=== PATIENT | male | born 1960 | race Caucasian/White ===

== ENCOUNTER → 2017-03-31 06:24 | Outpatient (CLI) | payer BC, SELFPAY ==
[2017-03-31 07:35] LABS: Absolute Lymphocyte Count 1.36 X10^3/ul (0.83-4.51); Absolute Neutrophil Count 6.6 X10^3/uL (2.0-7.7); Basophil# 0.04 X10^3/uL; Basophil% 0.4 % (0-1); Eosinophil# 0.22 X10^3/uL; Eosinophils% 2.4 % (0-5); Hematocrit 41.9 % (40-54); Hemoglobin 14.1 g/dl (13.0-16.5); Lymphocyte # 1.36 X10^3/ul (4.0); Lymphocyte % 15.1 % (19-41); Mean Corp Hgb Conc 33.7 g/gl (32-36); Mean Corpuscular Hgb 29.6 pg (27.0-32.0); Mean Corpuscular Volume 87.8 fL (80-94); Mean Platelet Vol. 11.1 fl (6.2-12.0); Monocyte# 0.77 X10^3/uL; Monocyte% 8.5 % (0-10); Neutrophil # 6.59 X10^3/uL (2.7-7.7); Neutrophil % 73.3 % (47-70); Platelet Count 197 K/mm3 (150-450); RBC Distribution Width CV 13.2 % (11.6-14.6); RBC Distribution Width SD 40.9 fl (35.1-43.9); Red Blood Count 4.77 M/mm3 (4.6-6.2)
[2017-03-31 07:37] LABS: POSITIVE COUNT NO; POSITIVE DIFFERENTIAL NO; POSITIVE MORPHOLOGY NO
[2017-03-31 07:48] LABS: Microalbumin,Random Urine 5.9 mg/L (NO RANGE EST.); Microalbumin:Creatinine Ratio 3.4 mg/g CRE (<30 mg/g CRE)
[2017-03-31 07:59] LABS: AST(SGOT) 15 U/L (15-37); Alanine Aminotransfer ALT/SGPT 48 U/L (16-61); Albumin, Serum 3.7 g/dL (3.2-5.0); Alkaline Phosphatase 89 U/L (45-117); Anion Gap 9 (5-15); BUN 22 mg/dL (7-18); BUN/Creat Ratio 19.8 RATIO (10-20); Calcium,Total 9.1 mg/dL (8.5-10.1); Chloride 105 mmol/L (98-107); Cholesterol 185 mg/dL (200); Creatinine, Serum 1.11 mg/dL (0.70-1.30); EST Glomerular Filtration Rate 72 mL/min (>60); Est Glom Filt Rate - Afr Amer 88 mL/min (>60); Globulin 3.6 g/dL (2.2-4.2); Glucose 127 mg/dL (74-106); High Density Lipoprotein 36 mg/dL; Potassium 4.2 mmol/L (3.5-5.1); Protein, Total 7.3 g/dL (6.4-8.2); Sodium Level 141 mmol/L (136-145); Thyroid Stim Hormone (TSH) 0.81 uIU/mL (0.358-3.74); Triglycerides 209 mg/dL; Very Low Density Lipoprotein 42 mg/dL (5-40)
[2017-03-31 08:25] LABS: Hemoglobin A1c 5.8 % (4.2-6.3)
== END ==
PROVIDERS: Family Provider Family Medicine; PCP Family Medicine; Visit Provider Family Medicine
DX: I10 Essential (primary) hypertension (principal); E78.5 Hyperlipidemia, unspecified; E01.0 Iodine-deficiency related diffuse (endemic) goiter; R73.01 Impaired fasting glucose
CPT/HCPCS: 36415; 80053; 80061; 82043; 82570; 83036; 84443; 85025

== ENCOUNTER → 2017-05-16 09:23 | Outpatient (CLI) | payer BC, SELFPAY ==
--- NOTE | 2017-05-16 09:27 | RAD_ITS ---
STUDY: X-RAY CHEST REASON FOR EXAM: Male, 56 years old. Chronic cough TECHNIQUE: Frontal and lateral views of the chest. COMPARISON: None. FINDINGS: The lungs are clear and expanded. There is no demonstrated pleural abnormality. Normal size heart. Normal mediastinum and colin. Normal visualized pulmonary arteries. Normal visualized aortic arch and descending thoracic aorta. Normal visualized thoracic spine. Normal visualized ribs, clavicles, and shoulders. There is no demonstrated abnormality of the visualized soft tissue structures of the upper abdomen. RAD/Chest PA and Lateral IMPRESSION: Normal x-ray examination of the chest. Electronically Signed: Dl Landrum MD at 16:48 EDT , Service support ,
== END ==
PROVIDERS: Family Provider Family Medicine; PCP Family Medicine; Visit Provider Family Medicine
DX: R06.09 Other forms of dyspnea (principal); R05 Cough
CPT/HCPCS: 71046

== ENCOUNTER → 2018-05-27 06:46 | Outpatient (CLI) | payer BC, SELFPAY ==
[2018-05-19 11:48] VITALS: BMI 35.4
--- NOTE | 2018-05-27 12:48 | PFT ---
INTRODUCTION: The patient is a 57-year-old male that presents for pulmonary function studies secondary to a diagnosis of chronic cough. Respiratory therapy reports good patient effort. Bronchodilators were used during testing. INTERPRETATION: Forced expiration spirometry demonstrates the presence of a moderately severe large airways obstructive ventilatory defect. There was a significant response to aerosolized bronchodilators noted. Spirograms are of good quality and do not plateau indicating slow emptying of the lungs. Body plethysmography was performed and reveals an elevated RV to 156% of predicted, indicative of underlying air trapping. Diffusing capacity by single breath CO is within normal limits. IMPRESSION: Partially reversible moderately severe large airways obstructive ventilatory defect with associated air trapping and preserved diffusing capacity.
== END ==
PROVIDERS: Family Provider Family Medicine; PCP Family Medicine; Referring Provider Internal Medicine Cardiovascular Disease; Visit Provider Internal Medicine Cardiovascular Disease
DX: R06.09 Other forms of dyspnea (principal)
CPT/HCPCS: 94060; 94726; 94729

== ENCOUNTER → 2018-06-10 12:42 | Outpatient (CLI) | payer BC, SELFPAY ==
[2018-05-19 11:48] VITALS: BMI 35.4
--- NOTE | 2018-06-10 12:44 | ECHOCS_ITS ---
Reason For Study: DYSPNEA/SOB Procedure This was a 2D Doppler, Color Flow transthoracic echocardiogram. Exam performed in department. Left Ventricle Normal size and thickness. The estimated ejection fraction is 65 %. Normal diastology for age. No regional wall motion abnormalities noted. Right Ventricle Moderately dilated right ventricle. Normal systolic function. Atria The left atrium is mildly enlarged. Normal right atrium. Normal atrial septum. Mitral Valve The mitral valve is structurally normal. No prolapse or stenosis seen. Trivial mitral valve insufficiency. Tricuspid Valve Normal tricuspid valve. Trivial tricuspid valve insufficiency. Right ventricular systolic pressure estimated to be 34 mmHg. Aortic Valve Normal aortic valve. Trisinus/trileaflet aortic valve. Pulmonic Valve Normal pulmonic valve. Great Vessels Normal aortic root. Normal arch. Normal inferior vena cava. Inferior vena cava collapse with sniff. Pericardium/Pleural No pericardial effusion. Medication 22 gauge I.V. with prn adaptor inserted into right arm. Diluted definity 6ml given slow IV push to enhance endocardial definition. MMode/2D Measurements & Calculations LVIDd: 5.3 cm IVSd: 1.0 cm Ao root diam: 3.2 cm LVIDs: 3.7 cm LVPWd: 1.0 cm RVDd: 4.4 cm FS: 29.8 % LAV(MOD-bp): 77.0 ml LVAd ap4: 37.4 cm2 SV(MOD-sp4): 79.2 ml LAV(MOD-bp) Indexed: 34.8 ml/m2 EDV(MOD-sp4): 133.4 ml LAV(MOD-sp2): 80.6 ml EDV(sp4-el): 139.4 ml LAV(MOD-sp4): 72.9 ml LVAs ap4: 21.8 cm2 ESV(MOD-sp4): 54.1 ml ESV(sp4-el): 56.9 ml EF(MOD-sp4): 59.4 % EF(sp4-el): 59.2 % SV(sp4-el): 82.5 ml LA A4 area: 22.9 cm2 LA dimension(2D): 4.2 cm RA A4 area: 15.6 cm2 Time Measurements MV dec time: 0.22 sec Doppler Measurements & Calculations MV E max terrance: 91.5 cm/sec Lat Peak E' Terrance: 12.6 cm/sec Med Peak E' Terrance: 8.1 cm/sec MV A max terrance: 84.2 cm/sec E/E' lat: 7.3 E/E' med: 11.3 MV E/A: 1.1 Ao V2 max: 207.3 cm/sec LV V1 max: 156.8 cm/sec PA V2 max: 123.0 cm/sec Ao max P.2 mmHg LV V1 max P.8 mmHg TR max terrance: 268.1 cm/sec TR max P.8 mmHg Interpretation Summary The estimated ejection fraction is 65 %. Normal diastology for age. Moderately dilated right ventricle. The left atrium is mildly enlarged. Trivial mitral valve insufficiency. Trivial tricuspid valve insufficiency. Right ventricular systolic pressure estimated to be 34 mmHg. There is no comparison study available. The study was technically difficult. Contrast injection was performed. Ordering Physician: Himanshu Hsu Referring Physician: ELENA LEON Performed By: Kay Brower RDCS
== END ==
PROVIDERS: Family Provider Family Medicine; PCP Family Medicine; Referring Provider Internal Medicine Cardiovascular Disease; Visit Provider Internal Medicine Cardiovascular Disease
DX: R06.09 Other forms of dyspnea (principal); I45.10 Unspecified right bundle-branch block; I10 Essential (primary) hypertension
CPT/HCPCS: 93306; Q9957; A4216; C8929

== ENCOUNTER → 2018-06-29 09:27 | Outpatient (CLI) | payer BC, SELFPAY ==
[2018-05-19 11:48] VITALS: BMI 35.4
--- NOTE | 2018-06-29 09:30 | STEWCON_ITS ---
Reason For Study: Dyspnea On Exertion Stress Results Protocol: Micheal Protocol Maximum Predicted HR: 162 bpm Target HR: 138 bpm % Maximum Predicted HR: 80 % DurationHeart Rate Stage (mm:ss) (bpm) BP Comment Baseline 58 116/80No Chest Pain; 4 ML Diluted Definity Given Micheal Protocol Stage I 3:00 87 136/72No Chest Pain Micheal Protocol Stage II 3:00 102 140/68No Chest Pain Micheal Protocol Stage III 3:00 129 180/70No Chest Pain; Mild Dyspnea Recovery 67 128/70No Chest Pain Stress Duration: 9:00 mm:ss Maximum Stress HR: 129 bpm METS: 10 Baseline Echocardiogram Findings The estimated ejection fraction is 65 %. Stress Echo Wall motion Data Resting WM Intermediate WM Stress WM Resting Wall Motion Wall Motion Stress No regional wall motion Infero-Basal: Mildly hypokinetic. abnormalities noted. Mid-Lateral : Mildly hypokinetic. EKG Data Normal intervals are noted. The patient exercised according to the regular Micheal protocol for a total duration of 9:00. The maximum heart rate attained was 131 beats per minute. This was 80% of maximum predicted heart rate. The patient exercised into stage 3 of the Micheal protocol. No clinical angina was noted. No arrhythmias noted. Interpretation Summary The estimated ejection fraction is 65 %. Infero-Basal: Mildly hypokinetic Mid-Lateral : Mildly hypokinetic Abnormal, submaximal treadmill echocardiogram. Abnormal for ischemia by EKG and echocardiographic criteria. No anginal symptoms noted. Rare PVC noted. Patient developed [address] segment depression along the inferior lateral leads at peak exercise which persisted for 5 minutes 50 seconds into recovery. Patient had subtle inferior and mid lateral hypokinesis on echocardiogram as well. Appropriate blood pressure response to exercise. Average exercise capacity for age. Test terminated due to fatigue. Final LVEF of 60%. Difficult echo windows requiring Definity agent may affect the sensitivity of the testing. The study was technically difficult. Contrast injection was performed. Ordering Physician: Himanshu Hsu Referring Physician: Tomi Balderrama Performed By: Aubree Galicia, CARLOS, RVT
== END ==
PROVIDERS: Family Provider Family Medicine; PCP Family Medicine; Referring Provider Internal Medicine Cardiovascular Disease; Visit Provider Internal Medicine Cardiovascular Disease
DX: I45.10 Unspecified right bundle-branch block (principal); I10 Essential (primary) hypertension; E78.5 Hyperlipidemia, unspecified; R06.09 Other forms of dyspnea
CPT/HCPCS: 93017; 93350; Q9957; A4216; C8928

== ENCOUNTER → 2018-07-27 12:52 | Outpatient (CLI) | payer BC, SELFPAY ==
[2018-05-19 11:48] VITALS: BMI 35.4
[2018-07-27 13:31] LABS: Hematocrit 40.5 % (40-54); Mean Corp Hgb Conc 34.6 g/gl (32-36); Mean Corpuscular Hgb 29.7 pg (27.0-32.0); Mean Corpuscular Volume 85.8 fL (80-94); Mean Platelet Vol. 10.5 fl (6.2-12.0); Platelet Count 211 K/mm3 (150-450); RBC Distribution Width CV 12.8 % (11.6-14.6); RBC Distribution Width SD 39.7 fl (35.1-43.9); Red Blood Count 4.72 M/mm3 (4.6-6.2); White Blood Count 6.3 K/mm3 (4.4-11.0)
[2018-07-27 13:32] LABS: Scan Indicated on CBC? Y/N NO
[2018-07-27 13:54] LABS: AST(SGOT) 16 U/L (15-37); Alanine Aminotransfer ALT/SGPT 37 U/L (16-61); Albumin, Serum 3.8 g/dL (3.2-5.0); Alkaline Phosphatase 84 U/L (45-117); Anion Gap 8 (5-15); BUN 18 mg/dL (7-18); BUN/Creat Ratio 17.5 RATIO (10-20); Bilirubin, Direct 0.11 mg/dL (0.00-0.30); Chloride 105 mmol/L (98-107); Cholesterol 186 mg/dL (200); Creatinine, Serum 1.03 mg/dL (0.70-1.30); EST Glomerular Filtration Rate 79 mL/min (>60); Est Glom Filt Rate - Afr Amer 95 mL/min (>60); Globulin 3.6 g/dL (2.2-4.2); Glucose 102 mg/dL (74-106); High Density Lipoprotein 43 mg/dL; Potassium 3.7 mmol/L (3.5-5.1); Protein, Total 7.4 g/dL (6.4-8.2); Sodium Level 139 mmol/L (136-145); Triglycerides 198 mg/dL; Very Low Density Lipoprotein 40 mg/dL (5-40)
== END ==
PROVIDERS: Family Provider Family Medicine; PCP Family Medicine; Referring Provider Internal Medicine Cardiovascular Disease; Visit Provider Internal Medicine Cardiovascular Disease
DX: E78.5 Hyperlipidemia, unspecified (principal); R94.39 Abnormal result of other cardiovascular function study; R06.02 Shortness of breath
CPT/HCPCS: 36415; 80048; 80061; 80076; 85027

== ENCOUNTER → 2019-03-06 08:33 | Outpatient (CLI) | payer BC, SELFPAY ==
[2018-05-19 11:48] VITALS: BMI 35.4
--- NOTE | 2019-03-06 08:40 | CT_ITS ---
STUDY: LOW DOSE CT LUNG CANCER SCREENING REASON FOR EXAM: Male, 58 years old. Tobacco use, smoked 1 pack/day x 34 years, quit 5 years ago, asthma, SOB on exertion, hypertension, 243lbs. RADIATION DOSAGE (If Supplied By Facility): CTDIvol = ( 4.02 ) mGy, DLP = ( 150.49 ) mGycm TECHNIQUE: No contrast was administered. Low dose technique was utilized (average mAS-38 and kVp 120). 1.25 mm axial source images with a slice interval of 1.25-mm were reconstructed in lung windows. 2.5 mm axial source images with a slice interval of 2.5-mm were reconstructed in lung windows. 5.0 mm axial source images with a slice interval of 5.0-mm were reconstructed in soft tissue windows. Nodule measured using lung windows on PACS and/or independent workstation with automated measurement of minimum and maximum diameter. Nodule measurement reported as average diameter rounded to the nearest whole number. Growth is defined as an increase ins size of greater than 1.5 mm. COMPARISON: None. NODULES: Total lung nodules (excluding granulomas): 0 Emphysema: None significant Endobronchial lesion: None Aorta: No significant atherosclerosis. Coronary arteries: None. Heart: Not enlarged. Pulmonary artery: Unremarkable for unopacified technique. Mediastinal nodes: No adenopathy. Other chest and abdominal findings: None significant CT/Low Dose CT Lung Screening IMPRESSION: Lung-RADS category 1 - Continue annual screening with LDCT in 12 months. IMPORTANT NOTES FOR USE: ACR Lung-RADS Version 1.0 Assessment Categories Release Date: June 14, 2013 Category: Coded 0-4 bases on nodule(s) with highest degree of suspicion. Negative screen is defined as categories 1 and 2; a positive screen is defined as categories 3 and 4. Category 3 and 4A nodules that are unchanged on interval CT should be coded as category 2, and individuals returned to screening in 12 months. Category 4X: Category 3 or 4 nodules with additional imaging findings that increase the suspicion of lung cancer, such as spiculation, GGN that doubles in size in 1 year, enlarged lymph notes, etc. Category Modifiers: S (significant finding unrelated to lung cancer) and C (prior history of treated lung cancer) may be added to the 0-4 Lung-RADS Electronically Signed: Albert Burch MD ([place]) at 21:48 EST , Service support ,
== END ==
PROVIDERS: Family Provider Family Medicine; PCP Family Medicine; Referring Provider Internal Medicine Pulmonary Disease; Visit Provider Internal Medicine Pulmonary Disease
DX: Z87.891 Personal history of nicotine dependence (principal)
CPT/HCPCS: G0297

== ENCOUNTER → 2019-05-05 10:31 | Outpatient (CLI) | payer BC, SELFPAY ==
[2018-05-19 11:48] VITALS: BMI 35.4
[2019-05-05 12:29] LABS: Absolute Lymphocyte Count 1.67 X10^3/uL (0.83-4.51); Absolute Neutrophil Count 4.6 X10^3/uL (2.0-7.7); Basophil# 0.04 X10^3/uL; Basophil% 0.6 % (0-1); Eosinophils% 1.5 % (0-5); Hematocrit 39.3 % (40-54); Hemoglobin 13.2 g/dL (13.0-16.5); Lymphocyte # 1.67 X10^3/ul (4.0); Lymphocyte % 24.4 % (19-41); Mean Corp Hgb Conc 33.6 g/dL (32-36); Mean Corpuscular Hgb 30.3 pg (27.0-32.0); Mean Corpuscular Volume 90.3 fL (80-94); Mean Platelet Vol. 10.9 fl (6.2-12.0); Monocyte# 0.44 X10^3/uL; Monocyte% 6.4 % (0-10); NRBC Flagged by Analyzer 0 % (0-5); Neutrophil # 4.57 X10^3/uL (2.7-7.7); Neutrophil % 66.7 % (47-70); Platelet Count 214 K/mm3 (150-450); RBC Distribution Width CV 12.9 % (11.6-14.6); RBC Distribution Width SD 42.4 fl (35.1-43.9); Red Blood Count 4.35 M/mm3 (4.6-6.2); White Blood Count 6.9 K/mm3 (4.4-11.0)
[2019-05-05 12:46] LABS: Hemoglobin A1c 5.8 % (4.2-6.3)
[2019-05-05 13:03] LABS: ALB/GLOB Ratio 1.1 RATIO (0.9-2.4); AST(SGOT) 15 U/L (15-37); Alanine Aminotransfer ALT/SGPT 38 U/L (16-61); Albumin, Serum 3.7 g/dL (3.2-5.0); Alkaline Phosphatase 84 U/L (45-117); Anion Gap 8 (5-15); BUN 27 mg/dL (7-18); BUN/Creat Ratio 22.1 RATIO (10-20); Chloride 105 mmol/L (98-107); Cholesterol 177 mg/dL (200); Creatinine, Serum 1.22 mg/dL (0.70-1.30); EST Glomerular Filtration Rate 65 mL/min (>60); Est Glom Filt Rate - Afr Amer 78 mL/min (>60); Globulin 3.5 g/dL (2.2-4.2); Glucose 104 mg/dL (74-106); High Density Lipoprotein 35 mg/dL; PSA,Total - Annual Screen 0.38 ng/mL (0.00-4.00); Potassium 3.7 mmol/L (3.5-5.1); Protein, Total 7.2 g/dL (6.4-8.2); Sodium Level 141 mmol/L (136-145); Thyroid Stim Hormone (TSH) 0.59 uIU/mL (0.358-3.74); Triglycerides 156 mg/dL; Very Low Density Lipoprotein 31 mg/dL (5-40)
== END ==
PROVIDERS: PCP Family Medicine; Visit Provider Family Medicine
DX: Z00.00 Encounter for general adult medical examination without abnormal findings (principal); R73.01 Impaired fasting glucose; R00.1 Bradycardia, unspecified
CPT/HCPCS: 36415; 80053; 80061; 83036; 84153; 84443; 85025; G0103

== ENCOUNTER → 2020-01-28 13:22 | Outpatient (CLI) | payer BC, SELFPAY ==
[2018-05-19 11:48] VITALS: BMI 35.4
[2020-01-28 16:45] LABS: Probe Check PASS; Specimen Processing Control PASS
== END ==
PROVIDERS: PCP Family Medicine; Visit Provider Family Medicine
DX: Z20.828 Contact with and (suspected) exposure to other viral communicable diseases (principal)
CPT/HCPCS: 87635; U0002

== ENCOUNTER 2021-02-19 14:10 | Outpatient (CLI) | payer BC, SELFPAY | END 2021-02-19 23:59 | disposition short-term general hospital (02) | LOC: LABSPEC 14:11 | PROVIDERS: PCP Family Medicine; Referring Provider Family Medicine; Visit Provider Family Medicine | DX: U07.1 COVID-19 (principal) | CPT/HCPCS: 87635; U0003; U0005 ==

== ENCOUNTER 2021-04-11 11:52 | Outpatient (CLI) | payer BC, SELFPAY ==
[2021-04-11 12:31] LABS: Erythrocyte Sedimentation Rate 10 mm/hr (0-20)
[2021-04-11 12:40] LABS: Absolute Lymphocyte Count 1.38 X10^3/uL (0.83-4.51); Absolute Neutrophil Count 5.5 X10^3/uL (2.0-7.7); Basophil# 0.03 X10^3/uL; Basophil% 0.4 % (0-1); Eosinophil# 0.09 X10^3/uL; Eosinophils% 1.2 % (0-5); Hematocrit 38.6 % (40-54); Hemoglobin 13.7 g/dL (13.0-16.5); Lymphocyte # 1.38 X10^3/ul (0.83-4.51); Lymphocyte % 18.4 % (19-41); Mean Corp Hgb Conc 35.5 g/dL (32-36); Mean Corpuscular Hgb 30.9 pg (27.0-32.0); Mean Corpuscular Volume 87.1 fL (80-94); Mean Platelet Vol. 10.8 fl (6.2-12.0); Monocyte# 0.43 X10^3/uL; Monocyte% 5.7 % (0-10); NRBC Flagged by Analyzer 0 % (0-5); Neutrophil # 5.54 X10^3/uL (2.7-7.7); Neutrophil % 73.9 % (47-70); Platelet Count 192 K/mm3 (150-450); RBC Distribution Width SD 41.5 fl (35.1-43.9); Red Blood Count 4.43 M/mm3 (4.6-6.2); White Blood Count 7.5 K/mm3 (4.4-11.0)
[2021-04-11 13:00] LABS: Hemoglobin A1c 5.7 % (3.8-5.6)
[2021-04-11 13:06] LABS: AST(SGOT) 16 U/L (15-37); Alanine Aminotransfer ALT/SGPT 36 U/L (16-61); Albumin, Serum 3.6 g/dL (3.2-5.0); Alkaline Phosphatase 88 U/L (45-117); Anion Gap 6 (5-15); BUN 22 mg/dL (7-18); BUN/Creat Ratio 18.5 RATIO (10-20); Bilirubin, Direct 0.12 mg/dL (0.00-0.30); CRP 3.36 mg/L (0.0-3.0); Calcium,Total 9.3 mg/dL (8.5-10.1); Chloride 106 mmol/L (98-107); Cholesterol 183 mg/dL (200); Creatinine, Serum 1.19 mg/dL (0.70-1.30); EST Glomerular Filtration Rate 66 mL/min (>60); Est Glom Filt Rate - Afr Amer 80 mL/min (>60); Globulin 3.4 g/dL (2.2-4.2); Glucose 124 mg/dL (74-106); High Density Lipoprotein 39 mg/dL; Potassium 3.7 mmol/L (3.5-5.1); Sodium Level 138 mmol/L (136-145); Uric Acid 7.4 mg/dL (3.5-7.2)
== END 2021-04-11 23:59 | disposition home or self-care (01) ==
LOC: LAB 11:55
PROVIDERS: PCP Family Medicine; Visit Provider Orthopaedic Surgery
DX: M25.571 Pain in right ankle and joints of right foot (principal); M54.16 Radiculopathy, lumbar region; I10 Essential (primary) hypertension
CPT/HCPCS: 80048; 80076; 82465; 83036; 83718; 84550; 85025; 85652; 86140

== ENCOUNTER 2021-05-02 10:42 | Outpatient (CLI) | payer BC, SELFPAY ==
--- NOTE | 2021-05-02 10:45 | CT_ITS ---
STUDY: CT OF THE RIGHT FOOT WITHOUT CONTRAST. REASON FOR EXAM: Male, 60 years old. AVASCULAR NECROSIS RADIATION DOSAGE (If Supplied By Facility): CTDIvol = ( 15.35 ) mGy, DLP = ( 361.44 ) mGycm. Individualized dose optimization techniques were used for this CT.? TECHNIQUE: Contiguous axial CT images of the right foot were obtained. Coronal and sagittal reformatted images were also obtained. COMPARISON: None. FINDINGS: There are subchondral cystic and lytic changes with minimal adjacent areas of sclerosis in the first metatarsal head predominantly along the inferior aspect. There are mild degenerative changes of the first MTP joint. There are no acute fractures or dislocation. There is a small bone island in the navicular bone. There is a nail within the calcaneus. There is mild plantar calcaneal spurring and minimal enthesopathic changes at the Achilles insertion site. The joint spaces are otherwise intact. Mild diffuse soft tissue swelling. Otherwise, soft tissues are unremarkable. No radiopaque foreign bodies in soft tissues. CT/Extremity Lower without Contra IMPRESSION: Subchondral cystic and lytic changes with minimal adjacent areas of sclerosis in the first metatarsal head predominantly along the inferior surface. Findings are nonspecific but may relate to chronic osteoarthritis or less likely avascular necrosis. No acute fracture or subluxation. Electronically Signed: Mack Shafer, at 14:59 EDT ,
== END 2021-05-02 23:59 | disposition home or self-care (01) ==
LOC: CT 10:44
PROVIDERS: PCP Family Medicine; Referring Provider Podiatrist Foot & Ankle Surgery; Visit Provider Podiatrist Foot & Ankle Surgery
DX: M87.9 Osteonecrosis, unspecified (principal)
CPT/HCPCS: 73700

== ENCOUNTER → 2021-09-19 | Outpatient (CLI) | payer BC, SELFPAY ==
--- NOTE | 2021-09-19 11:53 | CT_ITS ---
EXAM: CT CHEST, LUNG CANCER SCREENING WITHOUT INTRAVENOUS CONTRAST CLINICAL INDICATION: HX nicotine dependence TECHNIQUE: Helically acquired images were obtained of the chest without intravenous contrast using low dose (LDCT) lung cancer screening protocol. This CT exam was performed using one or more of the following dose reduction techniques: automated exposure control, adjustment of the mA and/or kV according to patient size, and/or use of iterative reconstruction technique. This report was created using [employer] report generation technology. COMPARISON: CT Lung Cancer Screening dated march 06 2019 FINDINGS: LUNGS AND PLEURAL SPACES: No evidence of lung mass or suspicious pulmonary nodule. No pleural effusion or thickening. No pneumothorax. HEART: Normal. Heart size is normal. No pericardial effusion. No significant coronary artery calcifications. MEDIASTINUM: Normal. No mediastinal or hilar adenopathy. Esophagus is unremarkable. No hiatal hernia. THYROID: Normal. No thyroid lesions. BONES/JOINTS: Normal. No suspicious lytic or blastic abnormality. VASCULATURE: Normal. Thoracic aorta is non-dilated. LYMPH NODES: Normal. No enlarged lymph nodes. CT/Low Dose CT Lung Screening IMPRESSION: 1. No evidence of lung mass or suspicious pulmonary nodule. 2. ACR Lung CT Screening Reporting T Data System (Lung-RADS) score: 1 - Recommend continued annual screening with low-dose CT (LDCT) in 12 months. } Electronically Signed: Mykel Padilla MD at 15:24 EDT ,
== END | disposition home or self-care (01) ==
LOC: CT 11:51
PROVIDERS: PCP Family Medicine; Referring Provider Internal Medicine Pulmonary Disease; Visit Provider Internal Medicine Pulmonary Disease
DX: Z87.891 Personal history of nicotine dependence (principal)
CPT/HCPCS: 71271

== ENCOUNTER → 2021-11-27 | Outpatient (CLI) | payer BC, SELFPAY ==
[2021-11-27 12:24] LABS: Absolute Lymphocyte Count 1.21 X10^3/uL (0.83-4.51); Absolute Neutrophil Count 2.5 X10^3/uL (2.0-7.7); Basophil# 0.03 X10^3/uL; Basophil% 0.7 % (0-1); Eosinophil# 0.04 X10^3/uL; Hematocrit 40.5 % (40-54); Hemoglobin 13.6 g/dL (13.0-16.5); Lymphocyte # 1.21 X10^3/ul (0.83-4.51); Lymphocyte % 29.4 % (19-41); Mean Corp Hgb Conc 33.6 g/dL (32-36); Mean Corpuscular Hgb 30.4 pg (27.0-32.0); Mean Corpuscular Volume 90.4 fL (80-94); Mean Platelet Vol. 10.4 fl (6.2-12.0); Monocyte% 7.3 % (0-10); NRBC Flagged by Analyzer 0 % (0-5); Neutrophil # 2.52 X10^3/uL (2.7-7.7); Neutrophil % 61.1 % (47-70); Platelet Count 180 K/mm3 (150-450); RBC Distribution Width CV 12.9 % (11.6-14.6); RBC Distribution Width SD 42.3 fl (35.1-43.9); Red Blood Count 4.48 M/mm3 (4.6-6.2); White Blood Count 4.1 K/mm3 (4.4-11.0)
[2021-11-27 13:06] LABS: AST(SGOT) 18 U/L (15-37); Alanine Aminotransfer ALT/SGPT 36 U/L (16-61); Albumin, Serum 3.4 g/dL (3.2-5.0); Alkaline Phosphatase 71 U/L (45-117); Anion Gap 8 (5-15); BUN 22 mg/dL (7-18); BUN/Creat Ratio 19.8 RATIO (10-20); Chloride 109 mmol/L (98-107); Cholesterol 198 mg/dL (200); Creatinine, Serum 1.11 mg/dL (0.70-1.30); EST Glomerular Filtration Rate 71 mL/min (>60); Est Glom Filt Rate - Afr Amer 86 mL/min (>60); Globulin 3.3 g/dL (2.2-4.2); Glucose 125 mg/dL (74-106); High Density Lipoprotein 41 mg/dL; PSA,Total - Annual Screen 0.37 ng/mL (0.00-4.00); Potassium 3.9 mmol/L (3.5-5.1); Protein, Total 6.7 g/dL (6.4-8.2); Sodium Level 142 mmol/L (136-145); Triglycerides 182 mg/dL; Uric Acid 8.1 mg/dL (3.5-7.2); Very Low Density Lipoprotein 36 mg/dL (5-40)
[2021-11-27 13:25] LABS: Hemoglobin A1c 5.9 % (3.8-5.6)
== END | disposition home or self-care (01) ==
LOC: BFHLAB 08:06
PROVIDERS: PCP Family Medicine; Visit Provider Family Medicine
DX: Z00.00 Encounter for general adult medical examination without abnormal findings (principal); I10 Essential (primary) hypertension; R73.01 Impaired fasting glucose; E79.0 Hyperuricemia without signs of inflammatory arthritis and tophaceous disease; Z12.5 Encounter for screening for malignant neoplasm of prostate
CPT/HCPCS: 36415; 80053; 80061; 83036; 84153; 84550; 85025; G0103

== ENCOUNTER → 2022-12-16 | Outpatient (CLI) | payer BC, SELFPAY ==
[2022-12-16 09:58] LABS: Absolute Lymphocyte Count 1.34 X10^3/uL (0.83-4.51); Absolute Neutrophil Count 4.7 X10^3/uL (2.0-7.7); Basophil# 0.03 X10^3/uL; Basophil% 0.5 % (0-1); Eosinophil# 0.05 X10^3/uL; Eosinophils% 0.8 % (0-5); Hematocrit 39.2 % (40-54); Hemoglobin 13.5 g/dL (13.0-16.5); Lymphocyte # 1.34 X10^3/ul (0.83-4.51); Lymphocyte % 20.2 % (19-41); Mean Corp Hgb Conc 34.4 g/dL (32-36); Mean Corpuscular Hgb 30.6 pg (27.0-32.0); Mean Corpuscular Volume 88.9 fL (80-94); Mean Platelet Vol. 10.2 fl (6.2-12.0); Monocyte# 0.47 X10^3/uL; Monocyte% 7.1 % (0-10); NRBC Flagged by Analyzer 0 % (0-5); Neutrophil # 4.73 X10^3/uL (2.7-7.7); Neutrophil % 71.1 % (47-70); Platelet Count 222 K/mm3 (150-450); RBC Distribution Width SD 42.1 fl (35.1-43.9); Red Blood Count 4.41 M/mm3 (4.6-6.2); White Blood Count 6.6 K/mm3 (4.4-11.0)
[2022-12-16 10:22] LABS: Anion Gap 4 (5-15); BUN 20 mg/dL (7-18); BUN/Creat Ratio 19.2 RATIO (10-20); Calcium,Total 9.1 mg/dL (8.5-10.1); Chloride 108 mmol/L (98-107); Creatinine, Serum 1.04 mg/dL (0.70-1.30); EST Glomerular Filtration Rate 77 mL/min (>60); Est Glom Filt Rate - Afr Amer 93 mL/min (>60); Glucose 130 mg/dL (74-106); Potassium 3.9 mmol/L (3.5-5.1); Sodium Level 139 mmol/L (136-145)
== END | disposition home or self-care (01) ==
LOC: LAB 09:31
PROVIDERS: PCP Family Medicine; Referring Provider Orthopaedic Surgery; Visit Provider Orthopaedic Surgery
DX: Z01.810 Encounter for preprocedural cardiovascular examination (principal)
CPT/HCPCS: 36415; 80048; 85025

== ENCOUNTER → 2022-12-20 | Outpatient (CLI) | payer BC, SELFPAY ==
--- NOTE | 2022-12-20 11:53 | CT_ITS ---
EXAM: CT CHEST, LUNG CANCER SCREENING WITHOUT INTRAVENOUS CONTRAST CLINICAL INDICATION: NICOTINE DEPENDENCE TECHNIQUE: Helically acquired images were obtained of the chest without intravenous contrast using low dose (LDCT) lung cancer screening protocol. This CT exam was performed using one or more of the following dose reduction techniques: automated exposure control, adjustment of the mA and/or kV according to patient size, and/or use of iterative reconstruction technique. COMPARISON: CT Lung Cancer Screening dated 09/19/2021 FINDINGS: LUNGS AND PLEURAL SPACES: Normal. No pleural effusion or thickening. No pneumothorax. No evidence of a lung mass or nodule. HEART: Normal. No pericardial effusion. Normal heart size. No coronary artery calcification. MEDIASTINUM: Normal. No mediastinal or hilar adenopathy. Esophagus is unremarkable. No hiatal hernia. THYROID: Normal. No thyroid nodules or calcification. BONES/JOINTS: No suspicious lytic or blastic abnormality. VASCULATURE: No aortic aneurysm. LYMPH NODES: Normal. No enlarged lymph nodes. CT/Low Dose CT Lung Screening IMPRESSION: No evidence of a lung mass or nodule. Lung-RADS score: 1 - Negative. Recommend continued annual screening with a low-dose CT (LDCT) in 12 months. Electronically Signed: Mykel Padilla MD at 13:42 EDT ,
--- NOTE | 2022-12-20 11:58 | EKG12_ITS ---
Test Reason : PRE OP Blood Pressure : / mmHG Vent. Rate : 061 BPM Atrial Rate : 061 BPM P-R Int : 138 ms QRS Dur : 114 ms QT Int : 398 ms P-R-T Axes : 056 013 053 degrees QTc Int : 400 ms Normal sinus rhythm Normal ECG Confirmed by ABA CONNOR, RPABHAKAR ([id number]), script editor TORSTEN RYEES ([id number]) on 12/30/2022 7:33:15 AM Referred By: Vikas Moss Confirmed By:ANTONELLA TRONCOSO MD
== END | disposition home or self-care (01) ==
PROVIDERS: PCP Family Medicine; Referring Provider Internal Medicine Pulmonary Disease; Visit Provider Orthopaedic Surgery
DX: Z01.810 Encounter for preprocedural cardiovascular examination (principal); Z12.2 Encounter for screening for malignant neoplasm of respiratory organs; Z87.891 Personal history of nicotine dependence
CPT/HCPCS: 71271; 93005

== ENCOUNTER 2023-09-05 01:28 | Observation (INO) | payer BC, SELFPAY ==
[2023-09-05] VITALS (35 sets, daily range): BP systolic 137–198; BP diastolic 70–130; PULSE 54–168; RESP 14–31; TEMP 36.5–36.7; O2SAT 95–100; BMI 36.3; BMI 35.3
--- NOTE | 2023-09-05 01:43 | RAD_ITS ---
INDICATION: chest pain EXAMINATION/TECHNIQUE: X-RAY - XR Chest 1 View COMPARISON: May 16, 2017. FINDINGS: LINES/DEVICES: None. LUNGS: No consolidation, edema or effusion. No pneumothorax. MEDIASTINUM AND CARDIOVASCULAR STRUCTURES: Cardiac silhouette not enlarged. BONES AND SOFT TISSUES: Unremarkable. RAD/Chest 1 View (Portable) IMPRESSION: No radiographic evidence of acute cardiopulmonary disease. Electronically Signed: Marcelo Morrissey MD at 2:26 EDT ,
--- NOTE | 2023-09-05 01:43 | EKG12_ITS ---
Test Reason : CHEST PAIN Blood Pressure : / mmHG Vent. Rate : 159 BPM Atrial Rate : 000 BPM P-R Int : 000 ms QRS Dur : 116 ms QT Int : 320 ms P-R-T Axes : 000 013 154 degrees QTc Int : 520 ms Critical Test Result: High HR Atrial fibrillation with rapid ventricular response Incomplete right bundle branch block Marked ST abnormality, possible inferior subendocardial injury Marked ST abnormality, possible anterolateral subendocardial injury Abnormal ECG Confirmed by NOEL CONNOR, MAGDALENE ([id number]), offline editor TORSTEN REYES ([id number]) on 09/08/2023 11:12:53 AM Referred By: ROSA Confirmed By:MAGDALENE COHEN MD
--- NOTE | 2023-09-05 01:45 | ED.VIS.CHEST ---
HPI History of Present Illness Chief Complaint: Chest Pain Informant: patient Narrative Narrative: Patient presenting with chest heaviness that radiated up into his jaw, irregular fast heartbeat, woke him up out of sleep about 30 minutes prior to arrival, which was somewhere around 2 hours after he fell asleep asymptomatic. Never had this before. No history of heart problems but he did have some shortness of breath 5 or so years ago and is a smoker so he underwent a stress echocardiogram which was abnormal, followed by a heart cath, that showed a very small area of disease but according to the patient's description, was almost normal and he was not medically managed. He does not take aspirin or metoprolol, just blood pressure medication. The heart cath was done at [facility] 2019. Patient states these past several days he was playing golf and drinking alcohol as well, and drinking quite a bit. [facility] Medical History (Updated 09/05/23 @ 06:[address] Eric Nguyen MD) Hiatal hernia Right bundle branch block Obstructive sleep apnea Hypertriglyceridemia Hyperlipidemia Chronic cough Dyspnea on exertion Sinus bradycardia Hypertension Home Medications ?Medication ?Instructions ?Recorded ?Last Taken ?Type esomeprazole magnesium 40 mg 40 mg PO DAILY 06/15/15 06/16/15 06:00 History capsule,delayed release (Nexium) celecoxib 400 mg capsule (Celebrex) 200 mg PO PRN PRN Pain 06/16/15 06/16/15 06:00 History albuterol sulfate 90 mcg/actuation 2 puff inhalation Q4H PRN 05/19/18 Unknown History aerosol inhaler (Ventolin HFA) shortness of breath or wheezing lisinopril 20 2 tab PO DAILY 05/19/18 Unknown History mg-hydrochlorothiazide 12.5 mg tablet Allergy/AdvReac Type Severity Reaction Status Date / Time losartan AdvReac Intermediate Severe Verified 09/05/23 01:34 fatigue Family History Mother Colon cancer Surgical History History of lower GI x-ray series (2012) History of upper GI x-ray series (2012) History of left heart catheterization (12/31/11) History of arthroscopy of left shoulder S/P left rotator cuff repair H/O arthroscopy of knee History of bilateral tympanoplasty H/O bilateral inguinal hernia repair (1971) History of tonsillectomy and adenoidectomy (1966) Social History (Updated 05/19/18 @ 12:[address] Himanshu Hsu MD) Smoking Status: Former smoker ROS ROS ED Constitutional Constitutional ED: Denies chills, fever(s) or sweats Eyes Eyes: Denies change in vision or diplopia ENT ENT ED: Denies rhinorrhea or sore throat Cardiovascular Cardiovascular: Reports chest pain, palpitations and racing heartbeat; Denies edema, lightheadedness, nausea or syncope Respiratory/Chest Respiratory/Chest: Denies cough or dyspnea Gastrointestinal Gastrointestinal: Denies abdominal pain, diarrhea, nausea or vomiting Genitourinary Genitourinary ED: Denies dysuria or hematuria Musculoskeletal Musculoskeletal: Denies back pain or neck pain Integumentary Denies abscess or rash Neurologic Neurologic: Denies headache(s), paresthesias or weakness Psychiatric Psychiatric: Denies anxiety or suicidal thoughts EXAM Physical Exam Const Vital Signs: 09/05/23 01:29 09/05/23 01:38 09/05/23 01:40 Temperature 98.1 F Temperature Source Temporal Pulse Rate 166 H 168 H 157 H Pulse Rate [1 (Initial Baseline)] Respiratory Rate 18 19 H 23 H Respiratory Rate [1 (Initial Baseline)] Blood Pressure 198/128 H 189/127 H Blood Pressure [1 (Initial Baseline)] Blood Pressure Mean 151 145 Pulse Ox 99 99 99 Oxygen Delivery Method Room Air Oxygen Delivery Method [1 (Initial Baseline)] Oxygen Flow Rate (L/min) Oxygen Flow Rate (L/min) [1 (Initial Baseline)] Fraction of Inspired Oxygen (FIO2) [1 (Initial Baseline)] 09/05/23 01:50 09/05/23 01:51 09/05/23 02:00 Temperature 98.0 F Temperature Source Pulse Rate 161 H 158 H Pulse Rate [1 (Initial Baseline)] Respiratory Rate 30 H 29 H Respiratory Rate [1 (Initial Baseline)] Blood Pressure 189/127 H 189/130 H Blood Pressure [1 (Initial Baseline)] Blood Pressure Mean 146 Pulse Ox 99 99 Oxygen Delivery Method Nasal Cannula Nasal Cannula Oxygen Delivery Method [1 (Initial Baseline)] Oxygen Flow Rate (L/min) 2 2 Oxygen Flow Rate (L/min) [1 (Initial Baseline)] Fraction of Inspired Oxygen (FIO2) [1 (Initial Baseline)] 09/05/23 02:15 09/05/23 02:17 09/05/23 02:20 Temperature Temperature Source Pulse Rate 156 H Pulse Rate [1 (Initial Baseline)] 160 H Respiratory Rate 24 H Respiratory Rate [1 (Initial Baseline)] 20 H Blood Pressure 181/122 H Blood Pressure [1 (Initial Baseline)] 181/122 H Blood Pressure Mean 138 Pulse Ox 100 Oxygen Delivery Method Room Air Oxygen Delivery Method [1 (Initial Baseline)] Nasal Cannula Oxygen Flow Rate (L/min) Oxygen Flow Rate (L/min) [1 (Initial Baseline)] 99 Fraction of Inspired Oxygen (FIO2) [1 (Initial Baseline)] 2 09/05/23 02:22 09/05/23 02:25 09/05/23 02:25 Temperature Temperature Source Pulse Rate 87 84 Pulse Rate [1 (Initial Baseline)] Respiratory Rate 19 H 22 H Respiratory Rate [1 (Initial Baseline)] Blood Pressure 187/104 H 159/93 H Blood Pressure [1 (Initial Baseline)] Blood Pressure Mean 126 112 Pulse Ox 99 100 Oxygen Delivery Method Room Air Oxygen Delivery Method [1 (Initial Baseline)] Oxygen Flow Rate (L/min) Oxygen Flow Rate (L/min) [1 (Initial Baseline)] Fraction of Inspired Oxygen (FIO2) [1 (Initial Baseline)] 09/05/23 02:29 09/05/23 02:30 09/05/23 02:30 Temperature Temperature Source Pulse Rate 84 Pulse Rate [1 (Initial Baseline)] Respiratory Rate 18 Respiratory Rate [1 (Initial Baseline)] Blood Pressure 137/112 H 156/87 H Blood Pressure [1 (Initial Baseline)] Blood Pressure Mean 120 108 Pulse Ox 97 Oxygen Delivery Method Room Air Room Air Oxygen Delivery Method [1 (Initial Baseline)] Oxygen Flow Rate (L/min) Oxygen Flow Rate (L/min) [1 (Initial Baseline)] Fraction of Inspired Oxygen (FIO2) [1 (Initial Baseline)] 09/05/23 02:35 09/05/23 02:40 09/05/23 02:45 Temperature Temperature Source Pulse Rate 78 Pulse Rate [1 (Initial Baseline)] Respiratory Rate 31 H Respiratory Rate [1 (Initial Baseline)] Blood Pressure 137/112 H 157/83 H 148/93 H Blood Pressure [1 (Initial Baseline)] Blood Pressure Mean 122 101 108 Pulse Ox 97 Oxygen Delivery Method Oxygen Delivery Method [1 (Initial Baseline)] Oxygen Flow Rate (L/min) Oxygen Flow Rate (L/min) [1 (Initial Baseline)] Fraction of Inspired Oxygen (FIO2) [1 (Initial Baseline)] 09/05/23 03:00 09/05/23 03:15 09/05/23 03:30 Temperature Temperature Source Pulse Rate 76 85 80 Pulse Rate [1 (Initial Baseline)] Respiratory Rate 21 H 25 H 27 H Respiratory Rate [1 (Initial Baseline)] Blood Pressure 167/99 H 137/98 H Blood Pressure [1 (Initial Baseline)] Blood Pressure Mean 121 109 Pulse Ox 100 98 98 Oxygen Delivery Method Oxygen Delivery Method [1 (Initial Baseline)] Oxygen Flow Rate (L/min) Oxygen Flow Rate (L/min) [1 (Initial Baseline)] Fraction of Inspired Oxygen (FIO2) [1 (Initial Baseline)] 09/05/23 03:45 09/05/23 04:00 09/05/23 04:15 Temperature Temperature Source Pulse Rate 60 62 72 Pulse Rate [1 (Initial Baseline)] Respiratory Rate 19 H 20 H 18 Respiratory Rate [1 (Initial Baseline)] Blood Pressure 159/91 H Blood Pressure [1 (Initial Baseline)] Blood Pressure Mean 112 Pulse Ox 98 97 98 Oxygen Delivery Method Oxygen Delivery Method [1 (Initial Baseline)] Oxygen Flow Rate (L/min) Oxygen Flow Rate (L/min) [1 (Initial Baseline)] Fraction of Inspired Oxygen (FIO2) [1 (Initial Baseline)] 09/05/23 04:30 09/05/23 04:45 09/05/23 05:00 Temperature Temperature Source Pulse Rate 56 L 57 L 62 Pulse Rate [1 (Initial Baseline)] Respiratory Rate 18 19 H 15 Respiratory Rate [1 (Initial Baseline)] Blood Pressure 151/73 H 155/87 H Blood Pressure [1 (Initial Baseline)] Blood Pressure Mean 96 109 Pulse Ox 97 96 95 Oxygen Delivery Method Oxygen Delivery Method [1 (Initial Baseline)] Oxygen Flow Rate (L/min) Oxygen Flow Rate (L/min) [1 (Initial Baseline)] Fraction of Inspired Oxygen (FIO2) [1 (Initial Baseline)] 09/05/23 05:15 09/05/23 05:30 09/05/23 05:45 Temperature Temperature Source Pulse Rate 61 56 L 60 Pulse Rate [1 (Initial Baseline)] Respiratory Rate 22 H 14 16 Respiratory Rate [1 (Initial Baseline)] Blood Pressure Blood Pressure [1 (Initial Baseline)] Blood Pressure Mean Pulse Ox 96 97 99 Oxygen Delivery Method Oxygen Delivery Method [1 (Initial Baseline)] Oxygen Flow Rate (L/min) Oxygen Flow Rate (L/min) [1 (Initial Baseline)] Fraction of Inspired Oxygen (FIO2) [1 (Initial Baseline)] 09/05/23 06:00 09/05/23 06:00 Temperature 97.9 F Temperature Source Pulse Rate 62 58 L Pulse Rate [1 (Initial Baseline)] Respiratory Rate 18 18 Respiratory Rate [1 (Initial Baseline)] Blood Pressure 164/96 H 164/86 H Blood Pressure [1 (Initial Baseline)] Blood Pressure Mean 118 112 Pulse Ox 98 97 Oxygen Delivery Method Oxygen Delivery Method [1 (Initial Baseline)] Oxygen Flow Rate (L/min) Oxygen Flow Rate (L/min) [1 (Initial Baseline)] Fraction of Inspired Oxygen (FIO2) [1 (Initial Baseline)] Positive well nourished and well developed General Appearance ED: well developed and NAD HEENT Reports moist mucous membranes normocephalic and atraumatic Eyes PERRL and EOMs intact bilaterally Neck full ROM and supple Resp normal respiratory effort and clear to auscultation bilaterally Cardio no murmurs Rate: tachycardic Rhythm: abnormal rhythm irregularly irregular Peripheral Pulses: pulses 2+ throughout GI non-tender and non-distended Auscultation: normoactive bowel sounds Palpation: soft Back/Spine no CVA tenderness General Back: other FROM Extremity normal to inspection General Extremety ED: Negative for edema, pulses abnormal or tenderness General Extremity: Negative for edema or pulses abnormal Neuro oriented x3, CN's II-XII intact bilaterally and no sensory deficits noted Sensorium / Orientation: awake and alert Motor Exam: strength 5/5 throughout Skin no rashes or lesions noted and no wounds Heart Score History: Moderately Suspicious ECG: Nonspecific Repolarization Age: >45 - <65 years Risk Factors: 1 or 2 Risk Factors Score: 4 MDM MDM MDM Narrative Medical decision making narrative: I discussed my recommendation for electrocardioversion with him, and the fact that it is indicated given the very short period of time he has had this, and more likely to result in the hospital/ER discharge tonight if his enzymes returned negative. He was amenable to that. Given his history I think this is more likely a primary electrical issue rather than unstable angina resulting in rapid A-fib. We discussed the possibility of the contrary. See the procedure note, patient was sedated as he had been n.p.o. for about 7 or 8 hours prior to this, and cardioverted successfully. He felt better on reevaluation, as blood pressure came down subsequently, Chest discomfort resolved. His repeat troponin came back elevated at 91. He still is asymptomatic and doing well. Therefore I repeated this another 2 hours later, and now it is over 300. I think the best course would be to admit him for continued evaluation. Patient was apprehensive I discussed with Dr. Aceves with cardiology, he agrees that admitting him for continued troponin trending and a Lexiscan stress test would be the best course of action to determine whether this truly is unstable angina with A-fib or if his troponin elevation is due to his tachycardia and the fact that we shocked him. Discussed w/ Hospitalist who is in agreement. History & Record Review Additional record(s) reviewed:: Prior outpatient record (including outside hospitals via [facility]; heart cath from [facility] 2019 not visible/available) Lab Data Attestation: I reviewed the patient's lab results. Labs: Laboratory Results - last 24 hr 09/05/23 09/05/23 09/05/23 01:34 03:28 05:26 WBC 6.5 RBC 4.74 Hgb 14.1 Hct 41.4 MCV 87.3 MCH 29.7 MCHC 34.1 RDW Std Deviation 40.5 RDW Coeff of Brandon 12.8 Plt Count 218 MPV 10.6 Immature Gran % (Auto) 0.300 Neut % (Auto) 53.0 Lymph % (Auto) 37.6 Holt % (Auto) 7.1 Eos % (Auto) 1.5 Baso % (Auto) 0.5 Absolute Neuts (auto) 3.4 Absolute Lymphs (auto) 2.44 Nucleated RBC % 0 Sodium 141 Potassium 3.4 L Chloride 104 Carbon Dioxide 28.0 Anion Gap 9 BUN 16 Creatinine 0.95 Estim Creat Clear Calc 96.69 Est GFR (MDRD) Af Amer 103 Est GFR (MDRD) Non-Af 85 BUN/Creatinine Ratio 16.9 Glucose 169 H Calcium 9.3 Troponin I High Sens 16 91 H 333 H* Radiography Diagnostic Testing: Clinical Impression(s) from Imaging Studies Chest X-Ray 09/05/23 01:43 IMPRESSION: No radiographic evidence of acute cardiopulmonary disease. Electronically Signed: Marcelo Morrissey MD at 2:26 EDT , Rhythm Strip Rhythm Strip: A-fib Rate: 170 Ectopy: None EKG Initial EKG: Attestation: I personally reviewed and interpreted this EKG as follows: Interpretation: No Acute Injury Pattern, Atrial Fibrillation (rapid, narrow complexes) and Non-Specific ST Changes Prior EKG tracings: available for review Prior: Changed (Rhythm different, was sinus rhythm, but morphology including narrow complexes with RSR' unchanged) post-cardioversion: Attestation: I personally reviewed and interpreted this EKG as follows: Interpretation: Sinus Rhythm and No Acute Injury Pattern Comments: normal EKG Prior: Changed (resolution of NSST wave abn's) Management Discussion w/another healthcare provider: Hospitalist and Yard Spotter (cardiology) Procedures Procedural Sedation 1 (Initial Baseline): Consent Signed: Yes Any Problems With Anesthesia: No You/Your family experience fever (hyperthermia) w/anesthesia: No Sedation medication: Etomidate Dose: 10 Route: IV (after pretx w/ fentanyl 50mcg IV) Total Moderate Sedation Units: 8 Maliampati Score: Class III ASA Classification: II Comment:: On monitor with prophylactic nasal cannula oxygenation and IV fluids, end-tidal CO2 monitoring, airway equipment at the bedside. Tolerated well with no complications. Other Procedures Procedure(s): Electrocardioversion: After informed consent and procedural sedation with fentanyl & etomidate, see above, paddles placed anterior oh-posterior O thorax, synchronized cardioversion performed with 200 J biphasic energy, resulting in successful cardioversion on the first attempt. Repeat EKG obtained showing normal sinus rhythm with resolution of T wave abnormality/repolarization abnormalities. Tolerated well without complications. Critical Care Time Critical Care Time: Yes Critical care time (excluding procedures): 30-74 minutes (32 min, not including procedure time), Including time spent:, Discussing w/Patient &/or Family/Employment Director, Discussing w/Consultants, Arranging Admission or Transfer and Performing Direct Patient Care at Bedside Discharge Plan Dx/Rx/DC Orders Clinical Impression: Atrial fibrillation with RVR, Chest pain, Elevated troponin Disposition Disposition: Acute Care Hospital [facility]
[2023-09-05 01:51] LABS: Absolute Lymphocyte Count 2.44 X10^3/uL (0.83-4.51); Absolute Neutrophil Count 3.4 X10^3/uL (2.0-7.7); Basophil# 0.03 X10^3/uL; Basophil% 0.5 % (0-1); Eosinophils% 1.5 % (0-5); Hematocrit 41.4 % (40-54); Hemoglobin 14.1 g/dL (13.0-16.5); Lymphocyte # 2.44 X10^3/ul (0.83-4.51); Lymphocyte % 37.6 % (19-41); Mean Corp Hgb Conc 34.1 g/dL (32-36); Mean Corpuscular Hgb 29.7 pg (27.0-32.0); Mean Corpuscular Volume 87.3 fL (80-94); Mean Platelet Vol. 10.6 fl (6.2-12.0); Monocyte# 0.46 X10^3/uL; Monocyte% 7.1 % (0-10); NRBC Flagged by Analyzer 0 % (0-5); Neutrophil # 3.44 X10^3/uL (2.7-7.7); Platelet Count 218 K/mm3 (150-450); RBC Distribution Width CV 12.8 % (11.6-14.6); RBC Distribution Width SD 40.5 fl (35.1-43.9); Red Blood Count 4.74 M/mm3 (4.6-6.2); White Blood Count 6.5 K/mm3 (4.4-11.0)
[2023-09-05] MEDS: 0.9% Normal Saline (1000mL) 1,000 ML 999 ML IV (02:00)
[2023-09-05] MEDS: fentaNYL 100 MCG/2 ML Ampul 50 MCG IV (02:04)
[2023-09-05 02:09] LABS: Anion Gap 9 (5-15); BUN 16 mg/dL (7-18); BUN/Creat Ratio 16.9 RATIO (10-20); Calcium,Total 9.3 mg/dL (8.5-10.1); Chloride 104 mmol/L (98-107); Creatinine, Serum 0.95 mg/dL (0.70-1.30); EST Glomerular Filtration Rate 85 mL/min (>60); Est Glom Filt Rate - Afr Amer 103 mL/min (>60); Estimated Creatinine Clearance 96.69 ml/min; Glucose 169 mg/dL (74-106); Potassium 3.4 mmol/L (3.5-5.1); Sodium Level 141 mmol/L (136-145); Troponin-I HS (w/2H Reflex) 16 pg/mL (3.0-78.0)
[2023-09-05] MEDS: Etomidate 20 MG/10 ML Vial 10 MG IV (02:18)
[2023-09-05] MEDS: Aspirin 81 MG TAB.CHEW 324 MG PO (02:32)
[2023-09-05 03:47] LABS: Reflex Troponin-HS? (from REC) Y
[2023-09-05 04:05] LABS: Troponin-I HS 91 pg/mL (3.0-78.0)
[2023-09-05 05:58] LABS: Troponin-I HS 333 pg/mL (3.0-78.0)
--- NOTE | 2023-09-05 06:29 | PCM.HP.STD ---
[facility] - General General Date of Admission: 09/05/23 Date of Service: 09/05/23 Chief Complaint: Chest Pain, Heart Racing and Palpitations. HPI Narrative YEYO CADE, is a 63 M with a past medical history of essential hypertension, hyperlipidemia, hypertriglyceridemia, obesity; with BMI of 36.3 this admission, NAY, history of tobacco abuse (quit ~2008), history of RBBB, history of LHC; at [facility] (2018), chronic cough, GERD; with hiatal hernia, history of bilateral inguinal hernia repair (1971), history of Left rotator cuff repair, OA; on Celecoxib who presents to [facility] ER complaining of chest pain, heart racing and palpitations. Mr. Cade reports his symptoms began approximately 30 minutes prior to arrival with the sudden-onset of chest pain that woke up from a sound sleep. He describes the chest pain as severe, 10/10, pressure-like, heaviness, radiating up into his jaw and with nothing seeming to make the pain better or worse so he decided to come in for further evaluation and treatment. He denies similar previous episodes and he states he was asymptomatic prior to falling asleep. He admits to increased alcohol consumption while playing golf, fishing and doing other recreational activities for the past several days but he denies alcohol abuse, illicit drug use, chest wall trauma, significant overexertion or new medications. He further states he had some SOB with a history of tobacco abuse ~5 years ago so he underwent a stress echocardiogram which was read as abnormal and then he underwent a LHC at [facility] that revealed a very small area of disease but without evidence of significant flow-limiting ischemia. He denies chest pain or palpitations at this time. In the ER he was noted to have EKG evidence of Paroxysmal Atrial Fibrillation; with RVR @ ~166 bpm complicated by Hypertensive Emergency evidenced by highly elevated blood pressure of 198/128 mmHg present on admission with subsequent emergent DCCV in ER with conversion back to NSR compounded by persistently increasing troponin levels of 16 pg/mL rising to 91 pg/mL and then still increasing to 333 pg/mL concerning for possible NSTEMI-II along with Hypokalemia of 3.4 mmol/L present on admission likely due at least in part to recent excessive EtOH consumption resulting in holiday heart syndrome with secret service agent on-call recommending stress test be done along with admission to the hospitalist service and he was then admitted to the PCU for ongoing care for a stay that is expected to extend beyond 2 midnights. [facility] Medical History (Updated 09/05/23 @ 07:[address] Micha Collins DO) Hiatal hernia Right bundle branch block Obstructive sleep apnea Hypertriglyceridemia Hyperlipidemia Chronic cough Dyspnea on exertion Sinus bradycardia Hypertension Home Medications ?Medication ?Instructions ?Recorded ?Last Taken ?Type esomeprazole magnesium 40 mg 40 mg PO DAILY 06/15/15 06/16/15 06:00 History capsule,delayed release (Nexium) celecoxib 400 mg capsule (Celebrex) 200 mg PO PRN PRN Pain 06/16/15 06/16/15 06:00 History albuterol sulfate 90 mcg/actuation 2 puff inhalation Q4H PRN 05/19/18 Unknown History aerosol inhaler (Ventolin HFA) shortness of breath or wheezing lisinopril 20 2 tab PO DAILY 05/19/18 Unknown History mg-hydrochlorothiazide 12.5 mg tablet Allergy/AdvReac Type Severity Reaction Status Date / Time losartan AdvReac Intermediate Severe Verified 09/05/23 01:34 fatigue Family History Mother Colon cancer Surgical History History of lower GI x-ray series (2012) History of upper GI x-ray series (2012) History of left heart catheterization (12/31/11) History of arthroscopy of left shoulder S/P left rotator cuff repair H/O arthroscopy of knee History of bilateral tympanoplasty H/O bilateral inguinal hernia repair (1971) History of tonsillectomy and adenoidectomy (1966) Social History (Updated 05/19/18 @ 12:[address] Himanshu Hsu MD) Smoking Status: Former smoker ROS ROS Narrative Review of systems: Constitutional: Patient denies fever, chills or sweats. Eyes: Patient denies changes in vision or discharge from eyes. ENT: Patient denies runny nose, sore throat or ear pain. CV: Patient admits to chest pain, palpitations and heart racing as per HPI. He denies LE edema, syncope or presyncope. Resp: Patient denies SOB or cough. GI: Patient denies abdominal pain, nausea, vomiting, diarrhea or constipation. : Patient denies dysuria or hematuria. MSK: Patient denies arthralgias or myalgias. Skin: Patient denies abscess, rash or jaundice. Psych: Patient denies symptoms of uncontrolled depression or anxiety. Neuro: Patient denies headache, paresthesias or focal neurologic deficits. Allergy: Patient denies lip swelling, tongue swelling or focal neurologic deficits. Hematology: Patient denies easy bleeding or easy bruising. Endocrinology: Patient denies polyuria, polydipsia and polyphagia. 14 point ROS otherwise negative except for positives noted above in HPI. Vital Signs Vital Signs Vital Signs: 09/05/23 01:29 09/05/23 01:38 09/05/23 01:40 Temperature 98.1 F Temperature Source Temporal Pulse Rate 166 H 168 H 157 H Pulse Rate [1 (Initial Baseline)] Respiratory Rate 18 19 H 23 H Respiratory Rate [1 (Initial Baseline)] Blood Pressure 198/128 H 189/127 H Blood Pressure [1 (Initial Baseline)] Blood Pressure Mean 151 145 Pulse Ox 99 99 99 Oxygen Delivery Method Room Air Oxygen Delivery Method [1 (Initial Baseline)] Oxygen Flow Rate (L/min) Oxygen Flow Rate (L/min) [1 (Initial Baseline)] Fraction of Inspired Oxygen (FIO2) [1 (Initial Baseline)] 09/05/23 01:50 09/05/23 01:51 09/05/23 02:00 Temperature 98.0 F Temperature Source Pulse Rate 161 H 158 H Pulse Rate [1 (Initial Baseline)] Respiratory Rate 30 H 29 H Respiratory Rate [1 (Initial Baseline)] Blood Pressure 189/127 H 189/130 H Blood Pressure [1 (Initial Baseline)] Blood Pressure Mean 146 Pulse Ox 99 99 Oxygen Delivery Method Nasal Cannula Nasal Cannula Oxygen Delivery Method [1 (Initial Baseline)] Oxygen Flow Rate (L/min) 2 2 Oxygen Flow Rate (L/min) [1 (Initial Baseline)] Fraction of Inspired Oxygen (FIO2) [1 (Initial Baseline)] 09/05/23 02:15 09/05/23 02:17 09/05/23 02:20 Temperature Temperature Source Pulse Rate 156 H Pulse Rate [1 (Initial Baseline)] 160 H Respiratory Rate 24 H Respiratory Rate [1 (Initial Baseline)] 20 H Blood Pressure 181/122 H Blood Pressure [1 (Initial Baseline)] 181/122 H Blood Pressure Mean 138 Pulse Ox 100 Oxygen Delivery Method Room Air Oxygen Delivery Method [1 (Initial Baseline)] Nasal Cannula Oxygen Flow Rate (L/min) Oxygen Flow Rate (L/min) [1 (Initial Baseline)] 99 Fraction of Inspired Oxygen (FIO2) [1 (Initial Baseline)] 2 09/05/23 02:22 09/05/23 02:25 09/05/23 02:25 Temperature Temperature Source Pulse Rate 87 84 Pulse Rate [1 (Initial Baseline)] Respiratory Rate 19 H 22 H Respiratory Rate [1 (Initial Baseline)] Blood Pressure 187/104 H 159/93 H Blood Pressure [1 (Initial Baseline)] Blood Pressure Mean 126 112 Pulse Ox 99 100 Oxygen Delivery Method Room Air Oxygen Delivery Method [1 (Initial Baseline)] Oxygen Flow Rate (L/min) Oxygen Flow Rate (L/min) [1 (Initial Baseline)] Fraction of Inspired Oxygen (FIO2) [1 (Initial Baseline)] 09/05/23 02:29 09/05/23 02:30 09/05/23 02:30 Temperature Temperature Source Pulse Rate 84 Pulse Rate [1 (Initial Baseline)] Respiratory Rate 18 Respiratory Rate [1 (Initial Baseline)] Blood Pressure 137/112 H 156/87 H Blood Pressure [1 (Initial Baseline)] Blood Pressure Mean 120 108 Pulse Ox 97 Oxygen Delivery Method Room Air Room Air Oxygen Delivery Method [1 (Initial Baseline)] Oxygen Flow Rate (L/min) Oxygen Flow Rate (L/min) [1 (Initial Baseline)] Fraction of Inspired Oxygen (FIO2) [1 (Initial Baseline)] 09/05/23 02:35 09/05/23 02:40 09/05/23 02:45 Temperature Temperature Source Pulse Rate 78 Pulse Rate [1 (Initial Baseline)] Respiratory Rate 31 H Respiratory Rate [1 (Initial Baseline)] Blood Pressure 137/112 H 157/83 H 148/93 H Blood Pressure [1 (Initial Baseline)] Blood Pressure Mean 122 101 108 Pulse Ox 97 Oxygen Delivery Method Oxygen Delivery Method [1 (Initial Baseline)] Oxygen Flow Rate (L/min) Oxygen Flow Rate (L/min) [1 (Initial Baseline)] Fraction of Inspired Oxygen (FIO2) [1 (Initial Baseline)] 09/05/23 03:00 09/05/23 03:15 09/05/23 03:30 Temperature Temperature Source Pulse Rate 76 85 80 Pulse Rate [1 (Initial Baseline)] Respiratory Rate 21 H 25 H 27 H Respiratory Rate [1 (Initial Baseline)] Blood Pressure 167/99 H 137/98 H Blood Pressure [1 (Initial Baseline)] Blood Pressure Mean 121 109 Pulse Ox 100 98 98 Oxygen Delivery Method Oxygen Delivery Method [1 (Initial Baseline)] Oxygen Flow Rate (L/min) Oxygen Flow Rate (L/min) [1 (Initial Baseline)] Fraction of Inspired Oxygen (FIO2) [1 (Initial Baseline)] 09/05/23 03:45 09/05/23 04:00 09/05/23 04:15 Temperature Temperature Source Pulse Rate 60 62 72 Pulse Rate [1 (Initial Baseline)] Respiratory Rate 19 H 20 H 18 Respiratory Rate [1 (Initial Baseline)] Blood Pressure 159/91 H Blood Pressure [1 (Initial Baseline)] Blood Pressure Mean 112 Pulse Ox 98 97 98 Oxygen Delivery Method Oxygen Delivery Method [1 (Initial Baseline)] Oxygen Flow Rate (L/min) Oxygen Flow Rate (L/min) [1 (Initial Baseline)] Fraction of Inspired Oxygen (FIO2) [1 (Initial Baseline)] 09/05/23 04:30 09/05/23 04:45 09/05/23 05:00 Temperature Temperature Source Pulse Rate 56 L 57 L 62 Pulse Rate [1 (Initial Baseline)] Respiratory Rate 18 19 H 15 Respiratory Rate [1 (Initial Baseline)] Blood Pressure 151/73 H 155/87 H Blood Pressure [1 (Initial Baseline)] Blood Pressure Mean 96 109 Pulse Ox 97 96 95 Oxygen Delivery Method Oxygen Delivery Method [1 (Initial Baseline)] Oxygen Flow Rate (L/min) Oxygen Flow Rate (L/min) [1 (Initial Baseline)] Fraction of Inspired Oxygen (FIO2) [1 (Initial Baseline)] 09/05/23 05:15 09/05/23 05:30 09/05/23 05:45 Temperature Temperature Source Pulse Rate 61 56 L 60 Pulse Rate [1 (Initial Baseline)] Respiratory Rate 22 H 14 16 Respiratory Rate [1 (Initial Baseline)] Blood Pressure Blood Pressure [1 (Initial Baseline)] Blood Pressure Mean Pulse Ox 96 97 99 Oxygen Delivery Method Oxygen Delivery Method [1 (Initial Baseline)] Oxygen Flow Rate (L/min) Oxygen Flow Rate (L/min) [1 (Initial Baseline)] Fraction of Inspired Oxygen (FIO2) [1 (Initial Baseline)] 09/05/23 06:00 09/05/23 06:00 Temperature 97.9 F Temperature Source Pulse Rate 62 58 L Pulse Rate [1 (Initial Baseline)] Respiratory Rate 18 18 Respiratory Rate [1 (Initial Baseline)] Blood Pressure 164/96 H 164/86 H Blood Pressure [1 (Initial Baseline)] Blood Pressure Mean 118 112 Pulse Ox 98 97 Oxygen Delivery Method Oxygen Delivery Method [1 (Initial Baseline)] Oxygen Flow Rate (L/min) Oxygen Flow Rate (L/min) [1 (Initial Baseline)] Fraction of Inspired Oxygen (FIO2) [1 (Initial Baseline)] Weight Weight: 245 lb 13.047 oz Body Mass Index (BMI) 36.3 Physical Exam Const alert, oriented x3, no apparent distress, average body habitus and healthy appearing General Appearance: cooperative HEENT normocephalic, head/scalp atraumatic, hearing grossly normal bilaterally and moist oral mucous membranes Eyes PERRL and EOMs intact bilaterally Neck no lymphadenopathy and supple Resp normal respiratory effort, no retractions, no use of accessory muscles and clear to auscultation bilaterally Cardio regular rate and regular rhythm GI normal to inspection, nondistended, normoactive bowel sounds, soft to palpation, non-tender and non-distended GI Narrative: Obese. Extremity normal to inspection, full ROM and no clubbing, cyanosis or edema Skin Skin Narrative: Patient has no evidence of rash, abscess or jaundice. Neuro oriented x3, CN's II-XII intact bilaterally, moves all extremities and no focal motor deficits Sensorium / Orientation: awake, alert, oriented to person, oriented to place and oriented to time Speech: speech normal Psych affect normal Results Medical Records Data Attestation: I reviewed the patient's medical records Lab / Micro Data Attestation: I reviewed the patient's lab results. 09/05/23 01:34 09/05/23 01:34 Labs: Laboratory Results - last 24 hr 09/05/23 01:34: WBC 6.5, RBC 4.74, Hgb 14.1, Hct 41.4, MCV 87.3, MCH 29.7, MCHC 34.1, RDW Std Deviation 40.5, RDW Coeff of Brandon 12.8, Plt Count 218, MPV 10.6, Immature Gran % (Auto) 0.300, Neut % (Auto) 53.0, Lymph % (Auto) 37.6, Colbert % (Auto) 7.1, Eos % (Auto) 1.5, Baso % (Auto) 0.5, Absolute Neuts (auto) 3.4, Absolute Lymphs (auto) 2.44, Nucleated RBC % 0, Sodium 141, Potassium 3.4 L, Chloride 104, Carbon Dioxide 28.0, Anion Gap 9, BUN 16, Creatinine 0.95, Estim Creat Clear Calc 96.69, Est GFR (MDRD) Af Amer 103, Est GFR (MDRD) Non-Af 85, BUN/Creatinine Ratio 16.9, Glucose 169 H, Calcium 9.3, Troponin I High Sens 16 09/05/23 03:28: Troponin I High Sens 91 H 09/05/23 05:26: Troponin I High Sens 333 H* Rhythm Strip Rhythm Strip: A-fib Rate: 170 Ectopy: None Imaging Radiology Impression Chest X-Ray 09/05/23 01:43 IMPRESSION: No radiographic evidence of acute cardiopulmonary disease. Electronically Signed: Marcelo Morrissey MD at 2:26 EDT , Assessment & Plan Assessment/Plan (1) Atrial fibrillation with RVR: (2) Alcohol causing toxic effect: QUALIFIERS: Encounter type: initial encounter Injury intent: accidental or unintentional Qualified Code(s): T51.91XA - Toxic effect of unspecified alcohol, accidental (unintentional), initial encounter (3) Hypertensive emergency: (4) Chest pain: QUALIFIERS: Chest pain type: unspecified Qualified Code(s): R07.9 - Chest pain, unspecified (5) Elevated troponin: (6) Right bundle branch block: (7) Obstructive sleep apnea: (8) Hypertriglyceridemia: (9) Hyperlipidemia: QUALIFIERS: Hyperlipidemia type: unspecified Qualified Code(s): E78.5 - Hyperlipidemia, unspecified PLAN: Plan 1. Paroxysmal Atrial Fibrillation; with RVR @ ~166 bpm requiring emergent DCCV in ER likely due to toxic effect of recently increased EtOH intake - Admit to PCU. Start oral Cardizem after patient completes cardiac stress test. Check TSH, UDS and BETHANY. Check echocardiogram to evaluate LVEF. Moderation in EtOH intake will be strongly encouraged. 2. Hypertensive Emergency evidenced by highly elevated blood pressure of 198/128 mmHg present on admission complicating #1 - Patient's blood pressure much improved since DCCV. Continue Lisinopril/HCTZ as previous and give prn IV Hydralazine for systolic blood pressure > 160 mmHg. 3. Persistently increasing troponin levels of 16 pg/mL rising to 91 pg/mL and then still increasing to 333 pg/mL concerning for possible NSTEMI-II arising from #1 & #2 - Continue ECASA and add Plavix, statin and full-dose Lovenox. Give NTG prn chest pain. Give Morphine prn for severe (level 6-10/10) pain. 4. Hypokalemia of 3.4 mmol/L present on admission compounding #1 - #3 - Give supplemental KCl and then recheck level in the AM to ensure improvement. 5. History of Tobacco Abuse with Chronic Cough - Quit smoking ~15 years ago. 6. History of LHC; at [facility] (2018) after abnormal stress echocardiogram - Noted. 7. Obesity; with BMI of 36.3 this admission plus NAY - Weight loss will be recommended. Continue CPAP. This complicated his case and may hamper recovery. 8. Hyperglycemia of 169 mg/dL present on admission - Check HgbA1c to screen for possible DM-2. 9. Hyperlipidemia - Begin statin due to #3 and check Lipid Profile. 10. Hypertriglyceridemia - Lipid Profile pending. 11. History of RBBB - Noted. 12. GERD; with hiatal hernia - Continue PPI as previous. 13. History of bilateral inguinal hernia repair (1971) - Noted. 14. History of Left rotator cuff repair - Noted. 15. OA; on Celecoxib - Hold this agent due to possible negative cardiac side effects. Give Tylenol prn. 16. DVT prophylaxis - Patient already on full-dose Lovenox for #3. Total time: Approximately 75 minutes. Charges/Coding Visit Charges Inpatient E&M: 67802 Init Hosp L3
--- NOTE | 2023-09-05 06:43 | NURSING ---
PCU OBS FRANCES CP, AFIB W RVR, ELEVATED TROP
--- NOTE | 2023-09-05 06:44 | ECHOCS_ITS ---
Reason For Study: ELEVATED TROPS Procedure This was a 2D Doppler, Color Flow transthoracic echocardiogram. The study was technically difficult. Contrast injection was performed. Exam performed in department. Left Ventricle Mild concentric left ventricular hypertrophy. Normal LV size. The left ventricular ejection fraction is 60 %. No evidence for diastolic dysfunction. Right Ventricle Normal right ventricle. Atria The left atrium is moderately enlarged. Normal right atrium. Mitral Valve Mild (1+) mitral valve insufficiency. Tricuspid Valve Trivial tricuspid valve insufficiency. Right ventricular systolic pressure estimated to be 39 mmHg. Aortic Valve Trisinus/trileaflet aortic valve. Mild diffuse aortic valve thickening. Pulmonic Valve The pulmonic valve is not well visualized. Great Vessels The aortic root is not well visualized. Pericardium/Pleural No pericardial effusion. Medication Diluted definity 1.5ml given slow IV push to enhance endocardial definition. MMode/2D Measurements & Calculations LVIDd: 5.2 cm IVSd: 1.2 cm Ao root diam: 3.7 cm LVIDs: 3.2 cm LVPWd: 1.4 cm FS: 38.4 % LAV(MOD-bp): 74.0 ml LVAd ap4: 42.2 cm2 SV(MOD-sp4): 102.6 ml LAV(MOD-bp) Indexed: 32.9 ml/m2 LVLd ap4: 9.3 cm LAV(MOD-sp2): 70.6 ml EDV(MOD-sp4): 166.0 ml LAV(MOD-sp4): 73.5 ml EDV(sp4-el): 162.5 ml LVAs ap4: 23.0 cm2 LVLs ap4: 7.3 cm ESV(MOD-sp4): 63.4 ml ESV(sp4-el): 61.8 ml EF(MOD-sp4): 61.8 % EF(sp4-el): 62.0 % SV(sp4-el): 100.7 ml LA A4 area: 24.0 cm2 LA dimension(2D): 4.8 cm RA A4 area: 19.7 cm2 TAPSE: 2.4 cm Time Measurements MV dec time: 0.21 sec Doppler Measurements & Calculations MV E max terrance: 93.7 cm/sec Lat Peak E' Terrance: 11.1 cm/sec Med Peak E' Terrance: 8.5 cm/sec MV A max terrance: 73.2 cm/sec E/E' lat: 8.5 E/E' med: 11.0 MV E/A: 1.3 MV V2 max: 100.4 cm/sec MV dec slope: 448.8 cm/sec2 Ao V2 max: 182.3 cm/sec MV max P.1 mmHg Ao max P.3 mmHg MV V2 mean: 55.8 cm/sec Ao V2 mean: 113.9 cm/sec MV mean P.5 mmHg Ao mean P.2 mmHg MV V2 VTI: 33.6 cm Ao V2 VTI: 38.9 cm AV (velocity ratio): 0.97 LV V1 max: 150.1 cm/sec PA V2 max: 115.2 cm/sec TR max terrance: 293.0 cm/sec LV V1 max P.0 mmHg PA V2 mean: 75.8 cm/sec TR max P.3 mmHg LV V1 mean P.2 mmHg LV V1 mean: 107.8 cm/sec LV V1 VTI: 37.9 cm ECHO/Echo Complete W/ Contrast Interpretation Summary Mild concentric left ventricular hypertrophy. The left ventricular ejection fraction is 60 %. No evidence for diastolic dysfunction. The left atrium is moderately enlarged. Mild (1+) mitral valve insufficiency. Right ventricular systolic pressure estimated to be 39 mmHg. Mild diffuse aortic valve thickening. Ordering Physician: Micha Collins Referring Physician: Tomi Balderrama Performed By: Romy Gallegos RCS
[2023-09-05 07:21] LABS: Phosphorus 3.8 mg/dL (2.5-4.9); Thyroid Stim Hormone (TSH) 0.53 uIU/mL (0.358-3.74)
[2023-09-05 08:27] LABS: Cholesterol 171 mg/dL (200); High Density Lipoprotein 36 mg/dL; Triglycerides 181 mg/dL; Very Low Density Lipoprotein 36 mg/dL (5-40)
[2023-09-05 08:44] LABS: Thyroid Stim Hormone (TSH) 0.53 uIU/mL (0.358-3.74)
[2023-09-05 09:07] LABS: Hemoglobin A1c 5.8 % (3.8-5.6)
--- NOTE | 2023-09-05 09:34 | EKG12_ITS ---
Test Reason : POST CARDIOVERT Blood Pressure : / mmHG Vent. Rate : 087 BPM Atrial Rate : 087 BPM P-R Int : 150 ms QRS Dur : 108 ms QT Int : 382 ms P-R-T Axes : 060 002 037 degrees QTc Int : 459 ms Normal sinus rhythm Incomplete right bundle branch block Nonspecific ST abnormality Abnormal ECG Confirmed by NOEL CONNOR, MAGDALENE ([id number]), makeup editor TORSTEN REYES ([id number]) on 09/08/2023 11:13:15 AM Referred By: BB Confirmed By:MAGDALENE COHEN MD
[2023-09-05] MEDS: Atorvastatin Calcium 40 MG Tablet PO (10:36)
[2023-09-05] MEDS: Clopidogrel Bisulfate 75 MG Tablet PO (10:36)
[2023-09-05] MEDS: Potassium Chloride Oral Tablet 20 MEQ 60 MEQ PO (10:36)
[2023-09-05] MEDS: Pantoprazole Sodium 40 MG Tablet PO (10:36)
--- NOTE | 2023-09-05 10:37 | EKG12_ITS ---
Test Reason : Blood Pressure : / mmHG Vent. Rate : 056 BPM Atrial Rate : 056 BPM P-R Int : 130 ms QRS Dur : 122 ms QT Int : 440 ms P-R-T Axes : 060 031 061 degrees QTc Int : 424 ms Sinus bradycardia with Premature atrial complexes Non-specific intra-ventricular conduction delay Borderline ECG No previous ECGs available Confirmed by NOEL CONNOR, MAGDALENE ([id number]), assignment desk editor JAY WILLIAMSON ([id number]) on 09/08/2023 1:14:05 PM Referred By: ABRAM Confirmed By:MAGDALENE COHEN MD
[2023-09-05] MEDS: Lisinopril 40 MG Tablet PO (10:54)
[2023-09-05] MEDS: hydroCHLOROthiazide 25 MG Tablet PO (10:54)
[2023-09-05 11:15] LABS: Alcohol, Blood (Medical)-Serum < 3.0 mg/dL
--- NOTE | 2023-09-05 12:42 | STRESSREP ---
Stress Test Report DOUG STRESS Date: 09/05/2023 ? Procedure: Pharmacologic stress nuclear imaging study?? ? Indications: A Fib ? Consent: Per the patient ? Procedure: ? The patient underwent pharmacologic (Regadenoson 0.4mg ) evaluation with a peak heart rate of [] beats per minute ([]%predicted maximal heart rate) and a peak blood pressure of [] mmHg. ? The baseline ECG demonstrated sinus rhythm.? The peak pharmacologic ECG demonstrated no ischemic changes. ? Occasional PVCs noted. ? There was no complaint of chest discomfort during pharmacologic infusion or recovery. ? The patient was injected with 14.7 millicuries of technetium 99m Cardiolite and subsequently rest SPECT Cardiolite nuclear imaging was obtained in the horizontal long, vertical long, and short axis views. The patient underwent pharmacologic (Regadenoson) evaluation. The patient was injected with 44.9 millicuries of technetium 99m Cardiolite and subsequently stress SPECT Cardiolite nuclear imaging was obtained in the horizontal long, vertical long, and short axis views.? A gated Cardiolite study at peak stress was obtained. ? The examination was stopped secondary to completion of protocol. ? Rest and stress SPECT Cardiolite nuclear imaging status post realignment, normalization, and attenuation correction demonstrate no fixed or reversible perfusion defects.. There is end systolic thickening and brightening. The gated Cardiolite study demonstrates myocardial thickening and inward wall motion.? The reported LVEF is 68%. ? Impression: ? 1.? Pharmacologic (Regadenoson) evaluation 2.? Peak pharmacologic ECG with no ischemic changes. 3. Occasional PVC noted.. 5. Rest and stress SPECT Cardiolite nuclear imaging demonstrate relative uniform tracer uptake and myocardial perfusion appearing within normal limits. 6.? The gated Cardiolite study reports an LVEF of 68%.
--- NOTE | 2023-09-05 12:58 | DCINST_ITS ---
Discharge Instructions Diet Discharge Diet: No restrictions Activity Discharge Activity: Return to Normal Activity Weight Bearing Status: Full weight bearing Follow Up Care Test Results: Test results from this visit will be discussed in further detail at your follow- up appointment, if applicable. Discharge Plan Admission Admit Date/Time: 09/05/23 06:33 Primary Reason for Your Visit: paroxsysmal a-fib Attending Provider: Tomi Downing Primary Care Provider: Tomi Balderrama Consulting Providers: Micha Collins; Vaughn Aceves Discharge Orders/Prescriptions Prescriptions: New aspirin 81 mg Tablet,Delayed Release (Dr/Ec) 81 mg PO BREAKFAST Qty: 0 0RF metoprolol succinate [Toprol XL] 25 mg tablet extended release 24 hr 25 mg PO DAILY Qty: 30 0RF Continued albuterol sulfate [Ventolin HFA] 90 mcg/actuation HFA aerosol inhaler 2 puff INHALATION Q4H PRN (Reason: shortness of breath or wheezing) lisinopril-hydrochlorothiazide 20-12.5 mg tablet 2 tab PO DAILY esomeprazole magnesium [Nexium] 40 MG capsule 40 mg PO DAILY celecoxib [Celebrex] 400 MG capsule 200 mg PO PRN PRN (Reason: Pain) Referrals / Follow Up: Tomi Balderrama DO [Primary Care Provider] - Within 2 Weeks (to recheck blood pressure) Disposition Disposition (needs filled in before D/C Order can be placed): Home, Self Care
--- NOTE | 2023-09-05 13:34 | PCM.DC.SUM ---
Providers Date of Admission: 09/05/23 Date of Discharge: 09/05/23 Primary Care Physician: Dr. Tomi Balderrama, Consultations 09/05/23 08:03 Consult: Cardiology Routine Consulting Provider: Vaughn Aceves Reason for Consult: Elevated Troponin and CP after PAF; with RVR. EMERGENT Consult: No MD Notified: Yes Date Notified: 09/05/23 Time Notified: 08:12 Method of Notification: Text Reason For Visit: ELEVATED TROPONIN AND PAF; WITH RVR. Diagnosis Discharge Diagnosis (1) Atrial fibrillation with RVR: Status: Acute Code(s): I48.91 - Unspecified atrial fibrillation (2) Alcohol causing toxic effect: Status: Acute Code(s): T51.91XA - Toxic effect of unspecified alcohol, accidental (unintentional), initial encounter Qualifiers: Encounter type: initial encounter Injury intent: accidental or unintentional Qualified Code(s): T51.91XA - Toxic effect of unspecified alcohol, accidental (unintentional), initial encounter (3) Hypertensive emergency: Status: Acute Code(s): I16.1 - Hypertensive emergency (4) Chest pain: Status: Acute Code(s): R07.9 - Chest pain, unspecified Qualifiers: Chest pain type: unspecified Qualified Code(s): R07.9 - Chest pain, unspecified (5) Elevated troponin: Status: Acute Code(s): R79.89 - Other specified abnormal findings of blood chemistry (6) Right bundle branch block: Status: Chronic Code(s): I45.10 - Unspecified right bundle-branch block (7) Obstructive sleep apnea: Status: Chronic Code(s): G47.33 - Obstructive sleep apnea (adult) (pediatric) (8) Hypertriglyceridemia: Status: Chronic Code(s): E78.1 - Pure hyperglyceridemia (9) Hyperlipidemia: Status: Chronic Code(s): E78.5 - Hyperlipidemia, unspecified Qualifiers: Hyperlipidemia type: unspecified Qualified Code(s): E78.5 - Hyperlipidemia, unspecified Plan 1. Paroxysmal atrial fibrillation with RVR-converted to sinus rhythm #2 essential hypertension #3 elevated troponin-not secondary to non-STEMI, secondary to myocardial injury Medications at Discharge Home Medications esomeprazole magnesium 40 mg capsule,delayed release (Nexium) 40 mg PO DAILY 06/15/15 celecoxib 400 mg capsule (Celebrex) 200 mg PO PRN PRN Pain 06/16/15 albuterol sulfate 90 mcg/actuation aerosol inhaler (Ventolin HFA) 2 puff inhalation Q4H PRN shortness of breath or wheezing 05/19/18 lisinopril 20 mg-hydrochlorothiazide 12.5 mg tablet 2 tab PO DAILY 05/19/18 aspirin 81 mg tablet,delayed release 81 mg PO BREAKFAST #0 tabs 09/05/23 metoprolol succinate 25 mg tablet,extended release 24 hr (Toprol XL) 25 mg PO DAILY #30 tabs 09/05/23 Hospital Course Procedures 2-D Echocardiogram, Cardioversion and Nuclear stress test Summary of Care Provided Minutes Spent on Discharge: 31 Hospital Course: This 63-year-old white male was seen in the emergency room at [facility] with complaints of chest discomfort and rapid heartbeat. This had started a few hours before the patient went to the emergency room. Evaluation in the emergency room showed the patient to be in atrial fibrillation with rapid ventricular response, EKG showed no evidence of ischemic changes. Labs revealed a normal troponin, chemistry panel was remarkable for potassium 3.4 which was not felt to be significant, CBC was unremarkable. Cardioversion was discussed with the patient and he agreed to undergo cardioversion in the ER which was successful. Cardiology was contacted, patient was admitted to the hospitalist service on PCU, he underwent an echocardiogram and nuclear stress test. Patient's second and third set of cardiac enzymes were elevated, these were drawn after his cardioversion, I did not feel the patient had a type II PA, I felt it was possibly secondary to myocardial injury. Patient's stress test was unremarkable, echocardiogram was unremarkable. Patient's Tony vas score was 1, it was recommended he either consider taking oral anticoagulation or an aspirin a day, patient elected to take an 81 mg aspirin daily. Patient's blood pressure was slightly high in the hospital, I recommended the patient consider taking a small amount of a beta-lisa which she agreed to. On 09/05/2023, patient was seen and examined: On examination he appeared in good health and spirits. Vital signs as documented. Skin warm and dry and without overt rashes. Neck without JVD, neck was supple, trachea midline, thyroid was normal. Lungs clear bilaterally, normal air movement was noted. Heart exam notable for regular rhythm, normal sounds and absence of murmurs, rubs or gallops. Abdomen unremarkable and without evidence of organomegaly, masses, or abdominal aortic enlargement. Bowel sounds are present, abdomen is not distended. Extremities nonedematous, no cyanosis was noted, no clubbing was noted. Neuro: Cranial nerves II through XII are grossly intact, no focal motor deficits were noted, sensation to light touch and pinprick intact, motor exam 5/5 throughout. Psych: Patient is alert and oriented x3, he does not appear anxious or depressed, he does not appear agitated. On 09/05/2023, patient was seen and examined and felt to be in stable condition for discharge home. Weight / BMI Weight Weight: 108.6 kg Body Mass Index (BMI) 35.3 ABG / Lab / Microbiology Data 09/05/23 01:34 09/05/23 01:34 Laboratory: Laboratory Results - last 24 hr 09/05/23 01:34: WBC 6.5, RBC 4.74, Hgb 14.1, Hct 41.4, MCV 87.3, MCH 29.7, MCHC 34.1, RDW Std Deviation 40.5, RDW Coeff of Brandon 12.8, Plt Count 218, MPV 10.6, Immature Gran % (Auto) 0.300, Neut % (Auto) 53.0, Lymph % (Auto) 37.6, [place] % (Auto) 7.1, Eos % (Auto) 1.5, Baso % (Auto) 0.5, Absolute Neuts (auto) 3.4, Absolute Lymphs (auto) 2.44, Nucleated RBC % 0, Sodium 141, Potassium 3.4 L, Chloride 104, Carbon Dioxide 28.0, Anion Gap 9, BUN 16, Creatinine 0.95, Estim Creat Clear Calc 96.69, Est GFR (MDRD) Af Amer 103, Est GFR (MDRD) Non-Af 85, BUN/Creatinine Ratio 16.9, Glucose 169 H, Hemoglobin A1c 5.8 H, Calcium 9.3, Troponin I High Sens 16 09/05/23 03:28: Troponin I High Sens 91 H 09/05/23 05:26: Phosphorus 3.8, Magnesium 2.0, Troponin I High Sens 333 H*, Triglycerides 181, Cholesterol 171, LDL Cholesterol 99, VLDL Cholesterol 36, HDL Cholesterol 36 L, TSH 0.53 07/19/24 05:26: TSH Cancelled 09/05/23 05:26: TSH 0.53 09/05/23 10:28: Ethyl Alcohol < 3.0 Radiography Diagnostic Testing: Radiology Impression Chest X-Ray 09/05/23 01:43 IMPRESSION: No radiographic evidence of acute cardiopulmonary disease. Electronically Signed: Marcelo Morrissey MD at 2:26 EDT Reading Location ID and State: [facility] / [place] Tel , Service support , Echocardiogram 09/05/23 06:44 Interpretation Summary Mild concentric left ventricular hypertrophy. The left ventricular ejection fraction is 60 %. No evidence for diastolic dysfunction. The left atrium is moderately enlarged. Mild (1+) mitral valve insufficiency. Right ventricular systolic pressure estimated to be 39 mmHg. Mild diffuse aortic valve thickening. Ordering Physician: Micha Collins Referring Physician: Tomi Balderrama Performed By: Romy Gallegos RCS D/C Instructions Discharge Diet: No restrictions Weight Bearing Status: Full weight bearing Meaningful Use Info Meaningful Use Meaningful Use Diagnoses (Choose all that apply): None applicable Ischemic Stroke Statin Dosing Therapy Reference: STATIN DOSE THERAPY REFERENCE: * Patients > 75 years receive moderate or high dose statin therapy. * Patients 75 years or YOUNGER should receive HIGH intensity statin dose unless contraindicated. You will be required to document reason for non-treatment if statin daily dose does not meet guidelines. HIGH DOSE STATIN THERAPY DAILY Atorvastatin > than or = to 40 mg Rosuvastatin > than or = to 20 mg Amlodipine + Atorvastatin > than or = to 2.5/40 mg Ezetimibe + Simvastatin 10/80 mg Simvastatin 80mg Discharge Plan Admission Admit Date/Time: 09/05/23 06:33 Primary Reason for Your Visit: paroxsysmal a-fib Attending Provider: Tomi Downing Primary Care Provider: Tomi Balderrama Consulting Providers: Micha Collins; Vaughn Aceves Discharge Orders/Prescriptions Prescriptions: New aspirin 81 mg Tablet,Delayed Release (Dr/Ec) 81 mg PO BREAKFAST Qty: 0 0RF metoprolol succinate [Toprol XL] 25 mg tablet extended release 24 hr 25 mg PO DAILY Qty: 30 0RF Continued albuterol sulfate [Ventolin HFA] 90 mcg/actuation HFA aerosol inhaler 2 puff INHALATION Q4H PRN (Reason: shortness of breath or wheezing) lisinopril-hydrochlorothiazide 20-12.5 mg tablet 2 tab PO DAILY esomeprazole magnesium [Nexium] 40 MG capsule 40 mg PO DAILY celecoxib [Celebrex] 400 MG capsule 200 mg PO PRN PRN (Reason: Pain) Referrals / Follow Up: Tomi Balderrama DO [Primary Care Provider] - Within 2 Weeks (to recheck blood pressure) Disposition Disposition (needs filled in before D/C Order can be placed): Home, Self Care Charges/Coding Visit Charges Inpatient E&M: 99629 Disch Hosp >30min
--- NOTE | 2023-09-05 14:11 | CASEMGMT ---
Patient has order for discharge. RN CM in to discuss needs at discharge. Patient denies needs or help at discharge. Patient had no further questions or concerns.
--- NOTE | 2023-09-05 14:37 | PHA.DC_ITS ---
Pharmacy [facility] Pharmacy Service has performed discharge medication reconciliation and counseling for this patient. The patient's discharge medication list was reviewed for discrepancies and discrepancies were resolved. 1. aspirin 81 mg PO daily with breakfast 2. metoprolol succinate 25 mg PO daily The patient was counseled on the following discharge medications and changes in medications for homegoing were reviewed. The Reason for Use, instructions for use, and potential side effects were reviewed for all new medications. The patient's questions regarding all of their medications were answered. The patient was able to verbally demonstrate an understanding of their discharge medications. The patient was counselled on new medications by accredited pharmacy technician Manav. Medications at Discharge Home Medications esomeprazole magnesium 40 mg capsule,delayed release (Nexium) 40 mg PO DAILY 06/15/15 celecoxib 400 mg capsule (Celebrex) 200 mg PO PRN PRN Pain 06/16/15 albuterol sulfate 90 mcg/actuation aerosol inhaler (Ventolin HFA) 2 puff inhalation Q4H PRN shortness of breath or wheezing 05/19/18 lisinopril 20 mg-hydrochlorothiazide 12.5 mg tablet 2 tab PO DAILY 05/19/18 aspirin 81 mg tablet,delayed release 81 mg PO BREAKFAST #0 tabs 09/05/23 metoprolol succinate 25 mg tablet,extended release 24 hr (Toprol XL) 25 mg PO DAILY #30 tabs 09/05/23
== END 2023-09-05 13:30 | disposition home or self-care (01) ==
LOC: ED 06:00 → PCU 06:59
PROVIDERS: Admitting Provider Internal Medicine; Emergency Provider Emergency Medicine; PCP Family Medicine; Visit Provider Internal Medicine
DX: I48.91 Unspecified atrial fibrillation (principal); I45.10 Unspecified right bundle-branch block; I49.3 Ventricular premature depolarization; G47.33 Obstructive sleep apnea (adult) (pediatric); R79.89 Other specified abnormal findings of blood chemistry; Z87.891 Personal history of nicotine dependence; E78.1 Pure hyperglyceridemia; T51.94XA Toxic effect of unspecified alcohol, undetermined, initial encounter; I16.1 Hypertensive emergency; I10 Essential (primary) hypertension; R07.89 Other chest pain; Z79.899 Other long term (current) drug therapy; E66.9 Obesity, unspecified; Z68.36 Body mass index [BMI] 36.0-36.9, adult; E87.6 Hypokalemia
CPT/HCPCS: 36415; 71045; 78452; 80048; 80061; 82077; 83036; 83735; 84100; 84443; 84484; 85025; 92960; 93005; 93017; 93306; 99284; A9500; J7030; Q9957; A4216; C8929; J2785

== ENCOUNTER → 2024-06-02 | Outpatient (CLI) | payer BC, SELFPAY ==
--- NOTE | 2024-06-02 13:04 | US_ITS ---
PROCEDURE: THYROID N/A REASON FOR EXAM: MASS ON THYROID ON CERVICAL MRI SCAN TECHNIQUE: Thyroid ultrasound COMPARISON: None FINDINGS: Right thyroid lobe measures 5.9 cm x 2.8 cm x 2.3 cm. Left thyroid lobe measures 5.2 cm x 1.9 cm x 2.0 cm. Isthmus thickness is5 mm. Thyroid Size: Diffusely enlarged Background Echotexture: Heterogeneous Thyroid Nodules: Multiple bilateral solid and complex cystic nodules seen in both lobes. Dominant 1.6 cm x 1.3 cm 1.1 cm complex cyst in the superior pole of the right lobe with perinodular flow. A similar- appearing nodule is seen in the midpole of the right lobe of the thyroid measuring 1.5 cm x 1 cm x 1 cm. Other: Biopsy of the dominant right thyroid nodule recommended. Findings suggestive of multinodular enlarged thyroid. US/Thyroid IMPRESSION: OVERALL FINAL ASSESSMENT: TI-RADS 4A: Low suspicion (5-10% risk). MULTINODULAR GOITER. Reading Location: [place] [id number]
== END | disposition home or self-care (01) ==
LOC: US 12:56
PROVIDERS: PCP Family Medicine; Referring Provider Family Medicine; Visit Provider Family Medicine
DX: E07.9 Disorder of thyroid, unspecified (principal)
CPT/HCPCS: 76536

== ENCOUNTER 2024-07-01 09:44 | Outpatient (CLI) | payer BC, SELFPAY ==
--- NOTE | 2024-07-01 08:30 | ASPIG_PTH ---
PATIENT: YEYO MONTALVO LOC: [facility] U#:[id number] AGE/SX: 63/M ROOM: RE07/01/[address]: Dr. Julio Cesar Fox MD : 1960 BED: DIS: 07/01/2024 SPEC #: [id number] RECD: 07/01/24 09:00 STATUS: KELSIE KIMBERLEY #: [id number] JAIRO: 07/01/24 08:[address]: Julio Cesar Fox DEPT: CYTOLOGY RECD BY: Deandre Mosley ENTERED: 07/01/24 11:03 SP TYPE: ASP OUT OTHR DR: Dr. Tomi Balderrama DO Tissues: A - Thyroid gland, NOS B - Thyroid gland, NOS Procedures: FNA Specimen Adequacy Special Stain Group II Surgery Specimen Level IV Cytology Other HEADER OPERATION: Fine needle aspiration of right thyroid nodule PRE-OP DIAGNOSIS: Right thyroid nodules TISSUE SUBMITTED: A- Right inferior thyroid nodule, B- Right mid thyroid nodule DIAGNOSIS CYTOLOGY A. Right thyroid, inferior, nodule, fine needle aspiration: * Atypia of undetermined significance - see Comment. B. Right thyroid, mid, nodule, fine needle aspiration: * No malignant cells identified - see Comment. * Macrophages and colloid suggestive of cystic degeneration. COMMENT The specimen is evaluated at the time of biopsy by Dr. Serrano. Immediate Evaluation = 1 (A). Right inferior : Blood. 2 (A). Right inferior : Few cells. 1 (B). Right mid: Macrophages and colloid. 2 (B). Right mid: Few cells. Selected slides/images were reviewed in intradepartmental consultation by Dr Ovidio Alexander (Community pathology division, [facility]). CYTOLOGY STUDY Slides are reviewed. CYTOLOGY GROSS A. Received is 30 ml of red-cloudy fluid with particles and 4 slides, 2 PAP and 2 DQ labeled with the patient's name and and designated per the requisition as Right inferior thyroid nodule. Submitted for cytology and cell block preparation. B. Received is 30 ml of red-cloudy fluid with particles and 4 slides, 2 PAP and 2 DQ labeled with the patient's name and and designated per the requisition as Right mid thyroid nodule. Submitted for cytology and cell block preparation. Mr 07/01/2024 CPT: 98020h2 ADDENDUM ADDENDUM ADDENDUM ADDENDUM 07/14/2024 11:08 ADDENDUM 07/14/2024 11:08 ADDENDUM 07/14/2024 11:08 ADDENDUM 07/14/2024 11:08 ADDENDUM 07/19/2024 09:38 ADDENDUM 07/14/2024 11:08 A. Per recommendations and a clinician-approved plan (a call was made to the referring doctor about the recommendation), genomic testing (Afirma) has been submitted. Results will be reported as an addendum and faxed to clinician. AFIRMA RESULTS REPORT- NODULE A RESULTS INTERPRETATION: No result for Afirma GSC due to inadequate RNA yield. RNA yields typically result from low nodule cellularity or insufficient FNA material. [employer] recommends resubmitting another FNA sample. Please see complete report in e-chart or EMR
== END 2024-07-01 23:59 | disposition home or self-care (01) ==
PROVIDERS: PCP Family Medicine; Referring Provider Surgery; Visit Provider Surgery
DX: E04.1 Nontoxic single thyroid nodule (principal)
CPT/HCPCS: 88161; 88172; 88305; 88313

== ENCOUNTER → 2024-07-27 | Outpatient (CLI) | payer MEDICARE, OTHER, SELFPAY ==
--- NOTE | 2024-07-27 | ASPIG_PTH ---
PATIENT: YEYO MONTALVO LOC: [facility] U#:[id number] AGE/SX: 63/M ROOM: RE07/27/[address]: Dr. Julio Cesar Fox MD : 1960 BED: DIS: 07/27/2024 SPEC #: [id number] RECD: 07/27/24 10:20 STATUS: KELSIE KIMBERLEY #: [id number] JAIRO: 07/27/24 00:[address]: Julio Cesar Fox DEPT: CYTOLOGY RECD BY: Steven Aj ENTERED: 07/27/24 10:21 SP TYPE: ASP OUT OTHR DR: Dr. Tomi Balderrama DO Tissues: A - Thyroid gland, NOS B - Thyroid gland, NOS Procedures: FNA Specimen Adequacy Special Stain Group II Surgery Specimen Level IV Cytology Other HEADER OPERATION: Fine needle aspiration of right thyroid nodule x2 PRE-OP DIAGNOSIS: Right thyroid nodule TISSUE SUBMITTED: A- Right mid thyroid, B- Right superior thyroid DIAGNOSIS CYTOLOGY A. Thyroid, right mid, nodule, FNA: * Atypia of undetermined significance (TBS III) B. Thyroid, right superior, nodule, FNA: * Atypia of undetermined significance (TBS III) COMMENT The specimen is evaluated at the time of biopsy by Dr. Serrano. Immediate Evaluation = A 1. Right mid thyroid - Adequate. A 2. Right mid thyroid - Blood. B1. Right superior thyroid - Few macrophages. B2. Right superior thyroid - Adequate. Per recommendations and a clinician-approved plan (a call was made to the referring doctor about the recommendation), genomic testing (Afirma) has been submitted. Results will be reported as an addendum and faxed to clinician. CYTOLOGY STUDY Slides are reviewed. CYTOLOGY GROSS A. Received is 30 ml of red-cloudy fluid cytolyt with particles and 4 smears labeled with the patient's name and and designated per the requisition as Right mid thyroid nodule. Submitted for cytology preparation. B. Received is 30 ml of red-cloudy fluid cytolyt with particles and 4 smears labeled with the patient's name and and designated per the requisition as Right superior thyroid nodule. Submitted for cytology preparation. 07/27/2024 CPT: 68652f7, 21147l5 ADDENDUM ADDENDUM ADDENDUM ADDENDUM ADDENDUM ADDENDUM ADDENDUM ADDENDUM ADDENDUM ADDENDUM ADDENDUM ADDENDUM ADDENDUM ADDENDUM ADDENDUM ADDENDUM ADDENDUM ADDENDUM 08/10/2024 10:16 ADDENDUM 08/10/2024 10:16 ADDENDUM 08/10/2024 10:16 ADDENDUM 08/10/2024 10:16 ADDENDUM 08/10/2024 10:16 AFIRMA RESULTS REPORT -A RESULTS INTERPRETATION: The result of this 1.6 cm [employer] III nodule A is Afirma GSC benign, which suggests a low risk of cancer of approximately 4%. Treatment like a cytologically benign nodule may be appropriate, including clinical correlation. Afirma XA is not performed on GSC Benign nodules. TERT promoter region analysis is not performed on GSC Benign nodules. AFIRMA RESULTS REPORT -B RESULTS INTERPRETATION: The result of this 1.5 cm [employer] III nodule B is Afirma GSC benign, which suggests a low risk of cancer of approximately 4%. Treatment like a cytologically benign nodule may be appropriate, including clinical correlation. Afirma XA is not performed on GSC Benign nodules. TERT promoter region analysis is not performed on GSC Benign nodules. Please see complete report in e-chart or EMR
== END | disposition home or self-care (01) ==
PROVIDERS: PCP Family Medicine; Referring Provider Surgery; Visit Provider Surgery
DX: E04.1 Nontoxic single thyroid nodule (principal)
CPT/HCPCS: 88161; 88172; 88305; 88313

== ENCOUNTER → 2024-12-24 | Outpatient (CLI) | payer MEDICARE, OTHER, SELFPAY ==
[2024-12-24 12:21] LABS: Hematocrit 41.3 % (40-54); Hemoglobin 14.1 g/dL (13.0-16.5); Immature Granulocytes Count 0.020 X10^3/uL (0.0-0.0); Mean Corp Hgb Conc 34.1 g/dL (32-36); Mean Corpuscular Volume 89.0 fL (80-94); Mean Platelet Vol. 10.8 fl (6.2-12.0); NRBC Flagged by Analyzer 0 % (0-5); Platelet Count 244 K/mm3 (150-450); RBC Distribution Width CV 12.8 % (11.6-14.6); RBC Distribution Width SD 41.9 fl (35.1-43.9); Red Blood Count 4.64 M/mm3 (4.6-6.2); White Blood Count 5.7 K/mm3 (4.4-11.0)
[2024-12-24 13:14] LABS: AST(SGOT) 18 U/L (<=37); Alanine Aminotransfer ALT/SGPT 23 U/L (<=46); Albumin, Serum 4.2 g/dL (3.4-4.8); Alkaline Phosphatase 74 U/L (40-129); Anion Gap 10 (5-15); BUN 24 mg/dL (4-19); BUN/Creat Ratio 24.3 RATIO (10-20); Calcium,Total 9.7 mg/dL (7.6-11.0); Carbon Dioxide 25.6 mmol/L (21.0-32.0); Chloride 102 mmol/L (98-108); Cholesterol 197 mg/dL (<=200); Globulin 2.7 g/dL (2.2-4.2); Glucose 123 mg/dL (70-99); Low Density Lipoprotein Calc. 130 mg/dL; PSA,Total - Annual Screen 0.45 ng/mL (0.02-4.00); Potassium 4.2 mmol/L (3.3-5.1); Triglycerides 135 mg/dL; Uric Acid 8.3 mg/dL (3.5-7.2); Very Low Density Lipoprotein 27 mg/dL (5-40); cholesterol:hdl ratio screen 4.58
== END | disposition home or self-care (01) ==
LOC: BFHLAB 08:52
PROVIDERS: PCP Family Medicine; Visit Provider Family Medicine
DX: E79.0 Hyperuricemia without signs of inflammatory arthritis and tophaceous disease (principal); M13.0 Polyarthritis, unspecified; I10 Essential (primary) hypertension; R73.01 Impaired fasting glucose; E04.2 Nontoxic multinodular goiter; Z12.5 Encounter for screening for malignant neoplasm of prostate
CPT/HCPCS: 36415; 80053; 80061; 83036; 84153; 84439; 84443; 84550; 85025; 86617; G0103